=== PATIENT | female | born 1950 | race Caucasian/White ===

== ENCOUNTER → 2021-06-30 12:25 | Outpatient (CLI) | payer MEDICARE, SELFPAY ==
--- NOTE | ~2021-06-30 | DEXA_ITS ---
Bone Density Report Name: RIC NEWTON Age: 70 Sex: Female Ethnicity: White Date of : 1950 Indication: postmenopausal; screening for osteoporosis; height loss; Referring Provider: ALEJANDRO WALDRON Study: Bone densitometry was performed. Exam Date: June 30, 2021 Accession number: [id number] Bone Density: Region BMD T-score Z-score Classification AP Spine (L1-L4) 1.089 0.4 2.6 Normal Femoral Neck (Left) 0.906 0.5 2.4 Normal Total Hip (Left) 1.075 1.1 2.7 Normal Femoral Neck (Right) 0.919 0.6 2.5 Normal Total Hip (Right) 1.090 1.2 2.8 Normal Total Hip Mean 1.083 1.2 2.8 Normal World Health Organization criteria for BMD impression classify patients as: Normal (T-score at or above -1.0), Osteopenia (T-score between -1.0 and -2.5), or Osteoporosis (T-score at or below -2.5). 10-year Fracture Risk: FRAX not reported because: All T-scores for Spine Total, Hip Total, Femoral Neck at or above -1.0 Clinical Information Provided by Patient: Has used the following medications: Vitamin D Patient maximum height was 64 Menopause Age: 39 Onset of menses at age 11 Number of children 2 Impression: The patient has normal bone mass. Discussion: LOW RISK OF FRACTURE; BONE DENSITY IS WELL ABOVE THE MINIMUM DESIRABLE LEVEL AND ABOVE AVERAGE FOR AGE AND SEX AT ALL SKELETAL SITES TESTED. This person's bone density is above expected limits for age and sex. This is rarely clinically significant, but should be pursued if there are significant musculoskeletal complaints. The patient should follow a healthful lifestyle (good nutrition with adequate calcium and vitamin D, and appropriate weight-bearing exercise). Follow-Up: Consider repeating this study in 5 years or sooner if there is some new clinical indication. Reported by: MARIANNA on 06/30/2021 12:40:00 PM. Reviewed, dictated and finalized at location ABrittany BEARDEN
== END ==
PROVIDERS: PCP Family Medicine; Visit Provider Family Medicine
DX: Z78.0 Asymptomatic menopausal state (principal)
CPT/HCPCS: 77080

== ENCOUNTER 2022-07-22 08:46 | Outpatient (CLI) | payer MEDICARE, SELFPAY ==
--- NOTE | ~2022-07-22 | CT_ITS ---
EXAMINATION: CT shoulder LT wo con DATE: 07/22/2022 09:07 INDICATION: Left shoulder pain. TECHNIQUE: Computed tomography (CT) of the left shoulder was performed without intravenous contrast. Automated exposure control and iterative reconstruction technique were employed. The dose-length prod uct was 171.02 mGy-cm. COMPARISON: Left shoulder radiographs 07/08/2022 FINDINGS: Bone alignment is normal. No fracture. There is mild osteoarthritis of glenohumeral joint a nd acromioclavicular joint. The rotator cuff muscle bellies are normal. IMPRESSION: 1. Mild polyarticular osteoarthritis. Reviewed, dictated and finalized at location A. NEYMAN PIPEFITTER
== END 2022-07-22 08:47 | disposition home or self-care (01) ==
PROVIDERS: PCP Family Medicine; Visit Provider Orthopaedic Surgery
DX: M19.012 Primary osteoarthritis, left shoulder (principal)
CPT/HCPCS: 73200

== ENCOUNTER 2023-09-14 12:33 | Outpatient (CLI) | payer MEDICARE, SELFPAY ==
--- NOTE | ~2023-09-14 | XR_ITS ---
Left Shoulder Technique: AP and scapular Y views were obtained. Clinical History: Pain, rotator cuff tear Findings: No fracture or dislocation is seen. Osseous alignment is anatomic. The glenohumeral and acr omioclavicular joint spaces are preserved. Soft tissues are unremarkable. Impression: Unremarkable left shoulder radiographs. Reviewed, dictated and finalized at [facility]. Impression: Unremarkable left shoulder radiographs.
== END 2023-09-14 12:34 | disposition home or self-care (01) ==
PROVIDERS: PCP Family Medicine; Visit Provider Orthopaedic Surgery
DX: M75.102 Unspecified rotator cuff tear or rupture of left shoulder, not specified as traumatic (principal)
CPT/HCPCS: 73030

== ENCOUNTER 2024-01-22 21:41 | Inpatient (IN) | payer MEDICARE, SELFPAY ==
--- NOTE | ~2024-01-22 | XR_ITS ---
Portable chest x-ray Comparison: 04/15/2011 Clinical History: Weakness, cough Findings: There is patchy airspace disease at the right perihilar region to right lower lobe. Left l aron clear. Cardiomediastinal silhouette is stable. Bones and soft tissues are unremarkable. Impression: Patchy airspace disease right perihilar region right lower lobe, suspicious for pneumonia. Reviewed, dictated and finalized at location . Impression: Patchy airspace disease right perihilar region right lower lobe, suspicious for pneumonia.
--- NOTE | ~2024-01-22 | XR_ITS ---
Portable chest x-ray Comparison: 01/23/2024 Clinical History: Cough, pneumonia Findings: There is worsening patchy consolidation throughout the right lung. Left lung essentially c lear. Cardiomediastinal silhouette is stable, with loop recorder. Bones and soft tissues are unremar kable. Impression: Worsening patchy right lung consolidation, compatible with extensive right lung pneumonia. Reviewed, dictated and finalized at location M. Impression: Worsening patchy right lung consolidation, compatible with extensive right lung pneumonia.
[2024-01-22 21:44] VITALS: BP 161/59; PULSE 90; RESP 20; TEMP 37.9; O2SAT 95
[2024-01-23] VITALS (15 sets, daily range): BP systolic 95–164; BP diastolic 49–76; PULSE 68–102; RESP 15–18; TEMP 37–38.3; O2SAT 93–96
--- NOTE | 2024-01-23 01:17 | ECG_ITS ---
Test Date: 2024-01-23 01:38:22 Measurements Intervals [place] Rate: 86 P: 59 NV: 165 QRS: -4 QRSD: 101 T: 30 QT: 385 QTc: 462 Interpretive Statements SINUS RHYTHM POSSIBLE LEFT ATRIAL ENLARGEMENT INCOMPLETE RIGHT BUNDLE BRANCH BLOCK LEFT VENTRICULAR HYPERTROPHY WITH ST-T CHANGE MINIMAL Q WAVES- HIGH LATERAL LEADS BASELINE ARTIFACT- II, III, AVR, AVL, AVF BORDERLINE ECG No previous ECG available for comparison Electronically Signed On 01-23-2024 08:41:34 CDT by Jose Rowley D.O.
[2024-01-23 01:46] LABS: Alanine Aminotransferase 22 U/L (6-35); Albumin Level 4.4 g/dL (3.5-5.1); Alkaline Phosphatase 96 U/L (38-126); Anion Gap 13 mmol/L (4-12); Aspartate Amino Transferase 33 U/L (14-36); Bilirubin,Total 1.4 mg/dL (0.2-1.3); Blood Urea Nitrogen 12 mg/dL (7-17); Calcium 9.3 mg/dL (8.4-10.2); Carbon Dioxide 25 mmol/L (22-30); Chloride 96 mmol/L (98-107); Estimated CRCL calculation 54 ml/min; Estimated Glomerular Filt Rate > 60; Glucose 154 mg/dL (65-110); Sodium 134 mmol/L (137-145)
[2024-01-23 01:51] LABS: Basophils Percent Auto 0.3 % (0.2-1.2); Eosinophils Percent Auto 0.1 % (0-4.4); Hematocrit 33.8 % (37.0-47.0); Hemoglobin 11.5 g/dL (12.0-15.0); Immature Granulocyte Absolute 0.05 K/mm3 (0.00-0.031); Immature Granulocyte Percent A 0.4 % (0-0.5); Lymphocytes Absolute Auto 0.74 K/mm3 (0.9-3.2); Lymphocytes Percent Auto 6.2 % (18.3-44.2); Mean Corpuscular Hemoglobin 26.6 pg (26-34); Mean Corpuscular Volume 78.1 fl (80-100); Mean Platelet Volume 11.9 fl (7.4-10.4); Monocytes Absolute Auto 0.8 K/mm3 (0.1-0.6); Neutrophils Absolute Auto 10.3 K/mm3 (1.3-6.7); Platelet Count Result 143 k/mm3 (150-375); Red Blood Count 4.33 M/mm3 (4.2-5.4); Red Cell Distribution Width 13.6 % (11.5-14.5)
[2024-01-23 02:01] LABS: Add Urine Microscopic? YES; Appearance Urine Clear (Clear); Bacteria Urine None Seen /hpf; Bilirubin Urine Negative (Negative); Blood Urine Negative (Negative); Color Urine Yellow (Yellow); Glucose Urine UA Negative (Negative); Ketones Urine Trace mg/dL (Negative); Leukocyte Esterase Ur Negative LEU/UL (Negative); Need Manual Microscopic Reviewed; Nitrate Urine Negative (Negative); Non Pathogenic Casts 0-2; Protein Urine 1+ mg/dL (Negative); RBC Urine 0-2 /hpf (0-2); Specific Grav Ur 1.012 (1.001-1.035); Squamous Epithelial Cell Urine None Seen /hpf (Few); WBC Urine 0-5 /hpf (0-3)
[2024-01-23 02:23] LABS: Influenza A QL RT-PCR Negative (Negative); Influenza B QL RT-PCR Negative (Negative); RSV RNA, RT-PCR Negative (Negative); SARS-CoV-2 RNA PCR Negative (Negative)
--- NOTE | 2024-01-23 03:04 | ED.FEVER ---
HPI - Fever General Chief Complaint: Fever Stated Complaint: fever, decreased appetite, cough, chills Time Seen by Provider: 01/23/24 01:57 History of Present Illness HPI Narrative: 73-year-old female with a history of hypertension, hypothyroidism presenting with fevers. States that for the last 4-5 days she has had nasal congestion and cough. States that she has been feeling increasingly weak with no appetite. For the last couple of days she has been spiking fevers up to 105F. She was seen at urgent care who started her on Augmentin today but then she checked her temperature and it was 104.4F so she became concerned and came in for evaluation. She denies chest pain or shortness of breath. No nausea or vomiting. No leg swelling. No dysuria. No further complaints. Related Data Home Medications Medication Instructions Recorded Confirmed cuptczyr-ant- 250 mg-dha 90 1 cap PO DAILY 07/08/22 01/23/24 mg-epa 160 jx-xtip-epea-zeax capsule (Ocuvite Adult 50 Plus) Allergies Allergy/AdvReac Type Severity Reaction Status Date / Time Sulfa (Sulfonamide Allergy Mild Rash Verified 11/26/23 12:21 Antibiotics) cefuroxime Allergy Unknown Rash Verified 11/26/23 12:21 clindamycin Allergy Unknown Rash Verified 11/26/23 12:21 levofloxacin AdvReac Unknown Other Verified 11/26/23 12:21 Review of Systems Review of Systems: All systems reviewed & are unremarkable except as noted in HPI and below PMFSH Past Medical History Medical History (Updated 01/27/24 @ 20:37 by Janett Beck MD) Allergic rhinitis Anemia Essential hypertension H/O cardiac arrhythmia Hypothyroidism (acquired) Venous insufficiency of both lower extremities Vitamin D deficiency Surgical History Surgical History History of bilateral knee replacement History of laparoscopic cholecystectomy History of radiofrequency ablation procedure for cardiac arrhythmia Family History Family History Mother Patient's mother is in good health Father Patient's father is in good health Social History Social History Smoking status: Never smoker Second hand tobacco smoke exposure: No Alcohol intake: never Substance use: never Substance use type: does not use Do You Feel Safe in your Home?: Yes Lack of Transportation: No Lack of Food: Never True Current Housing: I Have Housing Concerned About Future Housing: No Difficulty Paying Gas/Electric Bills: No Difficulty Paying for Meds: No Currently Unemployed: No Education: Bachelor's Degree Difficulty w/ Childcare or Family Care: No Living arrangements: with family Occupation/Education: retired Gender identity (if verbalized by the patient): Female Sexual Orientation (if Verbalized by the Patient): Straight or Heterosexual Spiritual care concerns: No Agree to blood products: Yes Exam Narrative: GENERAL: Nontoxic, no acute distress, very pleasant cooperative HEAD: Normocephalic, atraumatic. EYES: PERRLA and EOMI. ENT: + nasal congestion NECK: Supple. CHEST: Course breath sounds in bilateral bases. No respiratory distress. HEART: Regular rate and rhythm ABDOMEN: Soft, nontender, nondistended EXTREMITIES: Normal range of motion. SKIN: Warm, dry, no rash. NEURO: No focal deficits. Alert and oriented x3. PSYCH: Normal mood and affect. Course Vital Signs Vital signs: Vital Signs Temperature 100.3 F H 01/22/24 21:44 Pulse Rate 90 01/22/24 21:44 Respiratory Rate 20 01/22/24 21:44 Blood Pressure 161/59 H 01/22/24 21:44 Pulse Oximetry 95 01/22/24 21:44 Oxygen Delivery Room Air 01/22/24 21:44 Temperature 98.8 F 01/26/24 05:46 Pulse Rate 76 01/26/24 12:00 Respiratory Rate 16 01/26/24 05:46 Blood Pressure 165/68 H
--- NOTE | 2024-01-23 03:17 | PM.IMHP ---
H&P: HPI History of Present Illness Date/Time: 01/23/24 03:17 Chief Complaint: fever Narrative: This is a 73-year-old female with past medical history significant for hypertension, GERD. patient comes to the emergency room with fever of 105 cough productive of coleman sputum generalized malaise body aches and pains chills generalized weakness these for 3-4 days. In emergency room patient was found to have a right lower lobe and middle lobe pneumonia. Patient has been admitted for further evaluation management and treatment. Portable chest x-ray Comparison: 04/15/2011 Clinical History: Weakness, cough Findings: There is patchy airspace disease at the right perihilar region to right lower lobe. Left lung clear. Cardiomediastinal silhouette is stable. Bones and soft tissues are unremarkable. Impression: Patchy airspace disease right perihilar region right lower lobe, suspicious for pneumonia. Review of Systems Review of Systems: fever of 105, BODY ACHES AND PAINS, NIGHT SWEATS, CHILLS, COUGH PRODUCTIVE OF SPUTUM, POOR PER ORALLY INTAKE, GENERALIZED MALAISE. [facility] Past Medical History Medical History Allergic rhinitis Anemia Essential hypertension H/O cardiac arrhythmia Hypothyroidism (acquired) Venous insufficiency of both lower extremities Vitamin D deficiency Surgical History Surgical History History of bilateral knee replacement History of laparoscopic cholecystectomy History of radiofrequency ablation procedure for cardiac arrhythmia Family History Family History Mother Patient's mother is in good health Father Patient's father is in good health Social History Social History Smoking status: Never smoker Second hand tobacco smoke exposure: No Alcohol intake: never Substance use: never Substance use type: does not use Do You Feel Safe in your Home?: Yes Lack of Transportation: No Lack of Food: Never True Current Housing: I Have Housing Concerned About Future Housing: No Difficulty Paying Gas/Electric Bills: No Difficulty Paying for Meds: No Currently Unemployed: No Education: Bachelor's Degree Difficulty w/ Childcare or Family Care: No Living arrangements: with family Occupation/Education: retired Gender identity (if verbalized by the patient): Female Sexual Orientation (if Verbalized by the Patient): Straight or Heterosexual Spiritual care concerns: No Agree to blood products: Yes Meds Home Medications and Allergies Home Medications Medication Instructions Recorded Confirmed Type zecxjnty-[id number]-[id number] 250 mg-dha 90 1 cap PO DAILY 07/08/22 01/23/24 History mg-epa 160 sc-enca-ceec-zeax capsule (Ocuvite Adult 50 Plus) amlodipine 10 mg tablet 10 mg PO DAILY #90 tabs 09/01/23 01/23/24 Rx furosemide 20 mg tablet 20 mg PO QAM #90 tabs 09/01/23 01/23/24 Rx levothyroxine 75 mcg tablet 75 mcg PO DAILY #90 tabs 09/01/23 01/23/24 Rx spironolactone 25 mg tablet 25 mg PO DAILY #90 tabs 09/01/23 01/23/24 Rx omeprazole 40 mg capsule,delayed 40 mg PO DAILY #90 caps 11/11/23 01/23/24 Rx release Allergies Allergy/AdvReac Type Severity Reaction Status Date / Time Sulfa (Sulfonamide Allergy Mild Rash Verified 11/26/23 12:21 Antibiotics) cefuroxime Allergy Unknown Rash Verified 11/26/23 12:21 clindamycin Allergy Unknown Rash Verified 11/26/23 12:21 levofloxacin AdvReac Unknown Other Verified 11/26/23 12:21 Vital Signs Vital Signs - 24 hr 01/22/24 21:44 01/23/24 02:17 Temperature 100.3 F H 98.9 F Pulse Rate 90 84 Respiratory Rate 20 15 Blood Pressure 161/59 H 162/54 H Pulse Oximetry 95 94 Oxygen Delivery Room Air Exam Narrative: Patient is laying in a stretcher Co
[2024-01-23] MEDS: POTASSIUM CHLORIDE 20 MEQ ER TABLET 40 MEQ PO ×2 (03:28→09:51)
[2024-01-23] MEDS: AZTREONAM 2 GM in SODIUM CHLORIDE 0.9% IV 100 ML 200 ML IVPB ×3 (03:31→18:43)
[2024-01-23] MEDS: AZITHROMYCIN 500 MG/NS 250 ML 500 MG/250 ML BAG 250 MG IVPB (03:45)
--- NOTE | 2024-01-23 04:28 | ADMGEN ---
This patient, Alexa Burden, was admitted to Medical Room 344-01. Patient/family oriented to hospital policies and general routines including ID bracelet, bed and alarms, visiting hours, pain management, procedures, bathroom and other care routines, personal items, smoking policy, room service/diet, and visiting hours. Information on how to activate the Rapid Response Team has been discussed. Patient/Family are encouraged to report perceived risks to care and to ask questions if they do not understand what they are told or what they should do.
[2024-01-23] MEDS: LEVOTHYROXINE SODIUM 75 MCG TABLET PO (06:34)
--- NOTE | 2024-01-23 08:19 | PM.IMPN ---
Progress Note: A&P Assessment and Plan (1) Sepsis: Code(s): A41.9 - Sepsis, unspecified organism Status: Acute Assessment and Plan: Chest X-ray concerning for RLL pneumonia WBC 12.0, febrile 100.4, tachycardic 102, hypoTN Blood cultures, lactic normal , procal 1.1 NS bolus 1 L now, then maintenance fluids at 100 per hour Started on Aztreonam and Azithromycin (2) Pneumonia: Code(s): J18.9 - Pneumonia, unspecified organism Status: Acute Assessment and Plan: Patient presents with reports of 104 fever at home with productive cough of coleman sputum, generalized malaise, body aches, and weakness for 3-4 days. She was seen at an urgent care yesterday and was started on Augmentin. Chest X-ray concerning for RLL pneumonia WBC 12.0, febrile 100.4, tachycardic 102, hypoTN No blood cultures were drawn prior to abx. Adding cultures and lactic now. Sputum culture if able. Procal pending. Legionella, mycoplasma, and pneumococcal antigen pending Given allergies to cephalosporins she was started on Aztreonam and Azithromycin IV fluid bolus of NS now and the maintenance of 100 ml per hour Tylenol as needed for fever Duo nebs q 6 hours, Mucinex BID Incentive spirometer, PEP (3) Diarrhea: Code(s): R19.7 - Diarrhea, unspecified Status: Acute Assessment and Plan: Suspect virus gastroenteritis vs less likely bacterial infection vs less likely colitis with lack of abdominal pain foul smelling, watery diarrhea with nausea C-diff ordered, stool culture ordered can consider Imodium if infection ruled out (4) Hypertension: Code(s): I10 - Essential (primary) hypertension Status: Acute Assessment and Plan: Patient is normally on amlodipine 10 mg daily, Lasix 20 mg daily, and spironolactone 25 mg daily. Given sepsis, blood pressure medications are on hold Plan DVT prophylaxis: Lovenox Glycemic control: na Code Status: Full Code Disposition: 73-year-old lady who presents with productive cough, fever, and chills and found have right lower lobe pneumonia. She has triggering sepsis for leukocytosis, fever, tachycardia, hypertension. She was started on IV antibiotics. Blood cultures, lactic, and procalcitonin are pending. IV fluids were started. PT OT will be ordered when appropriate. Medication reconciliation obtained via the following: Nurse completed on admission The file time of this note does not necessarily represent the time the patient was seen. Subjective Date/time seen: 01/23/24 08:19 Interval history: 73-year-old female with a history of hypertension, hypothyroidism presenting with fevers. She states on Wednesday she was having a decreased appetite and started to feel generally unwell with a sore throat. On Wednesday she started to feel worse with generalized weakness, fatigue, and productive cough. On Wednesday she went to an urgent care where she was told she had a sinus infection. She was started on Augmentin and took one dose. When she got home later that day she had a fever of 105. She decided to come to the ED for further evaluation. She says that she has been hospitalized in the past for sepsis but unsure of the source. 01/22: She is sitting in bed on room air and appears unwell. She has a congested cough and has been producing green sputum. Her sore throat is improved. She reports night sweats this week and she thinks she has lost about 8 pounds in the last week due to poor intake. Today she is also having loose, watery foul smelling stools. She denies abdominal pain, cramping, or bloody stool. Review of Systems Review of Systems: All systems reviewed & are unremarkable except as noted in HPI and below Exam Narrative: General: well appearing, appears stated age. HEENT: normocephalic, atraumatic. Mucous membranes moist. EOMI,
[2024-01-23 09:48] LABS: Magnesium 1.8 mg/dL (1.6-2.3)
[2024-01-23] MEDS: guaiFENesin 12 HR 600 MG TABCR 1200 MG PO ×2 (09:50→21:02)
[2024-01-23] MEDS: PANTOPRAZOLE 40 MG TABLET PO (09:50)
[2024-01-23] MEDS: OPTI-GEN TAB 1 TABLET PO (09:51)
[2024-01-23] MEDS: SODIUM CHLORIDE 0.9% IV 1,000 ML 999 ML IV CONT (09:52)
[2024-01-23] MEDS: SODIUM CHLORIDE 0.9% IV 1,000 ML 100 ML IV CONT ×2 (09:53→21:03)
[2024-01-23] MEDS: ENOXAPARIN 40 MG/0.4 ML SYRINGE SUB-Q (09:54)
[2024-01-23 09:58] LABS: Procalcitonin 1.1 ng/mL
[2024-01-23] MEDS: IPRATROPIUM 0.5 MG/ALBUTEROL SULFATE 2.5 MG AMPUL.NEB 3 ML INHALATION ×2 (13:07→20:04)
[2024-01-23] MEDS: ACETAMINOPHEN 500 MG TABLET 1000 MG PO (17:19)
[2024-01-24] VITALS (20 sets, daily range): BP systolic 130–134; BP diastolic 45–56; PULSE 70–100; RESP 18–22; TEMP 36.7–38.4; O2SAT 93–95
[2024-01-24] MEDS: IPRATROPIUM 0.5 MG/ALBUTEROL SULFATE 2.5 MG AMPUL.NEB 3 ML INHALATION ×3 (01:47→20:31)
[2024-01-24] MEDS: AZTREONAM 2 GM in SODIUM CHLORIDE 0.9% IV 100 ML 200 ML IVPB ×3 (04:14→18:45)
[2024-01-24] MEDS: AZITHROMYCIN 500 MG/NS 250 ML 500 MG/250 ML BAG 250 MG IVPB (04:18)
[2024-01-24] MEDS: ACETAMINOPHEN 500 MG TABLET 1000 MG PO ×2 (04:41→16:18)
[2024-01-24] MEDS: LEVOTHYROXINE SODIUM 75 MCG TABLET PO (05:06)
[2024-01-24] MEDS: SODIUM CHLORIDE 0.9% IV 1,000 ML 100 ML IV CONT (05:41)
[2024-01-24 07:06] LABS: Hematocrit 26.2 % (37.0-47.0); Hemoglobin 8.7 g/dL (12.0-15.0); Mean Corpuscular HGB Conc 33.2 g/dl (32-36); Mean Corpuscular Hemoglobin 26.5 pg (26-34); Mean Corpuscular Volume 79.9 fl (80-100); Platelet Count Result 106 k/mm3 (150-375); Red Blood Count 3.28 M/mm3 (4.2-5.4); Red Cell Distribution Width 13.9 % (11.5-14.5); White Blood Count 5.8 K/mm3 (4.5-10.0)
[2024-01-24 07:07] LABS: Basophils Percent Auto 0.2 % (0.2-1.2); Eosinophils Percent Auto 0.5 % (0-4.4); Immature Granulocyte Absolute 0.05 K/mm3 (0.00-0.031); Immature Granulocyte Percent A 0.9 % (0-0.5); Immature Platelet Fraction Pct 7.3 % (0.9-11.2); Lymphocytes Absolute Auto 0.46 K/mm3 (0.9-3.2); Lymphocytes Percent Auto 7.9 % (18.3-44.2); Mean Platelet Volume 12.3 fl (7.4-10.4); Monocytes Absolute Auto 0.4 K/mm3 (0.1-0.6); Monocytes Percent Auto 7.5 % (2.6-8.5); Neutrophils Absolute Auto 4.9 K/mm3 (1.3-6.7)
[2024-01-24 07:14] LABS: Alanine Aminotransferase 18 U/L (6-35); Alkaline Phosphatase 73 U/L (38-126); Anion Gap 8 mmol/L (4-12); Aspartate Amino Transferase 27 U/L (14-36); Bilirubin,Total 0.4 mg/dL (0.2-1.3); Blood Urea Nitrogen 8 mg/dL (7-17); Calcium 8.3 mg/dL (8.4-10.2); Carbon Dioxide 21 mmol/L (22-30); Chloride 107 mmol/L (98-107); Estimated CRCL calculation 61 ml/min; Estimated Glomerular Filt Rate > 60; Glucose 126 mg/dL (65-110); Magnesium 1.9 mg/dL (1.6-2.3); Potassium 3.1 mmol/L (3.4-5.0); Sodium 136 mmol/L (137-145)
--- NOTE | 2024-01-24 07:23 | PM.IMPN ---
Progress Note: A&P Assessment and Plan (1) Sepsis: Code(s): A41.9 - Sepsis, unspecified organism Status: Acute Assessment and Plan: Chest X-ray concerning for RLL pneumonia WBC 12.0, febrile 100.4, tachycardic 102, hypoTN Blood cultures, lactic normal , procal 1.1 NS bolus 1 L now, then maintenance fluids at 100 per hour Started on Aztreonam and Azithromycin (2) Pneumonia: Code(s): J18.9 - Pneumonia, unspecified organism Status: Acute Assessment and Plan: Patient presents with reports of 104 fever at home with productive cough of coleman sputum, generalized malaise, body aches, and weakness for 3-4 days. She was seen at an urgent care yesterday and was started on Augmentin. Chest X-ray concerning for RLL pneumonia WBC 12.0, febrile 100.4, tachycardic 102, hypoTN No blood cultures were drawn prior to abx. Adding cultures and lactic now. Sputum culture if able. Procal 1.1 Legionella, mycoplasma, and pneumococcal antigen pending Given allergies to cephalosporins she was started on Aztreonam and Azithromycin IV fluid bolus of NS now and the maintenance of 100 ml per hour Tylenol as needed for fever Duo nebs q 6 hours, Mucinex BID Incentive spirometer, PEP (3) Anemia: Code(s): D64.9 - Anemia, unspecified Status: Acute Assessment and Plan: Hemoglobin 11.5 g/dl on admission. Today Hgb dropped to 8.7 g/dl. Patient has been having diarrhea. She states her stool was yellow but the last bowel movement she had was dark anemia panel pending occult stool ordered (4) Metabolic acidosis: Code(s): E87.20 - Acidosis, unspecified Status: Acute Assessment and Plan: Likely from diarrhea C-diff negative Stool culture pending occult stool ordered (5) Hypertension: Code(s): I10 - Essential (primary) hypertension Status: Acute Assessment and Plan: Patient is normally on amlodipine 10 mg daily, Lasix 20 mg daily, and spironolactone 25 mg daily. Given sepsis, blood pressure medications are on hold Blood pressures are reviewed Plan DVT prophylaxis: Lovenox Glycemic control: na Code Status: Full Code Disposition: 73-year-old lady who presents with productive cough, fever, and chills and found have right lower lobe pneumonia. She has triggering sepsis for leukocytosis, fever, tachycardia, hypertension. She was started on IV antibiotics. Blood cultures, lactic, and procalcitonin are pending. IV fluids were started. PT OT will be ordered when appropriate. Medication reconciliation obtained via the following: Nurse completed on admission The file time of this note does not necessarily represent the time the patient was seen. Subjective Date/time seen: 01/24/24 07:23 Interval history: 73-year-old female with a history of hypertension, hypothyroidism presenting with fevers. She states on Wednesday she was having a decreased appetite and started to feel generally unwell with a sore throat. On Wednesday she started to feel worse with generalized weakness, fatigue, and productive cough. On Wednesday she went to an urgent care where she was told she had a sinus infection. She was started on Augmentin and took one dose. When she got home later that day she had a fever of 105. She decided to come to the ED for further evaluation. She says that she has been hospitalized in the past for sepsis but unsure of the source. 01/22: She is sitting in bed on room air and appears unwell. She has a congested cough and has been producing green sputum. Her sore throat is improved. She reports night sweats this week and she thinks she has lost about 8 pounds in the last week due to poor intake. Today she is also having loose, watery foul smelling stools. She denies abdominal pain, cramping, or bloody stool. 01/23: No acute events overnight. S
[2024-01-24] MEDS: ENOXAPARIN 40 MG/0.4 ML SYRINGE SUB-Q (08:09)
[2024-01-24] MEDS: POTASSIUM CHLORIDE 20 MEQ ER TABLET 40 MEQ PO (08:09)
[2024-01-24] MEDS: OPTI-GEN TAB 1 TABLET PO (08:09)
[2024-01-24] MEDS: guaiFENesin 12 HR 600 MG TABCR 1200 MG PO ×2 (08:09→21:01)
[2024-01-24] MEDS: KCL 20 MEQ/SW 100 ML 100 ML 50 MEQ IVPB (08:09)
[2024-01-24] MEDS: PANTOPRAZOLE 40 MG TABLET PO (08:09)
[2024-01-24 08:10] LABS: Toxigenic C. Diff NEGATIVE (NEGATIVE)
[2024-01-24 12:27] LABS: Iron 18 ug/dL (37-170)
[2024-01-24] MEDS: SACCHAROMYCES BOULARDII 250 MG CAPSULE PO ×2 (12:29→16:18)
[2024-01-24 12:38] LABS: Immature Reticulocyte Fraction 12.1 % (3.0-15.9); Reticulocyte Hemoglobin Conten 21.3 pg (28.2-36.6); Reticulocyte Percent 1.14 % (0.7-4.3); Reticulocytes Absolute 0.04 10^6/uL (0.02-0.10)
[2024-01-24 12:41] LABS: Percent Iron Saturation 9 % (20-50)
[2024-01-24 12:45] LABS: Bilirubin,Total 0.4 mg/dL (0.2-1.3); Lactate Dehydrogenase 184 U/L (120-246)
[2024-01-24 12:48] LABS: Transferrin 138 mg/dL (206-381)
[2024-01-24 13:33] LABS: Folic Acid 11.5 ng/mL (2.76->20)
[2024-01-24] MEDS: FERROUS SULFATE 325 MG TABLET DR PO (16:18)
[2024-01-25] VITALS (15 sets, daily range): BP systolic 136–172; BP diastolic 51–68; PULSE 71–103; RESP 16–20; TEMP 36.8–37; O2SAT 92–95
[2024-01-25] MEDS: ACETAMINOPHEN 500 MG TABLET 1000 MG PO (01:18)
[2024-01-25] MEDS: IPRATROPIUM 0.5 MG/ALBUTEROL SULFATE 2.5 MG AMPUL.NEB 3 ML INHALATION ×3 (02:00→13:58)
[2024-01-25 02:21] LABS: IFOB Positive Control Positive
[2024-01-25 02:23] LABS: Immunochemical Fecal Occult Bl Negative (N)
[2024-01-25] MEDS: AZITHROMYCIN 500 MG/NS 250 ML 500 MG/250 ML BAG 250 MG IVPB (04:09)
[2024-01-25] MEDS: AZTREONAM 2 GM in SODIUM CHLORIDE 0.9% IV 100 ML 200 ML IVPB ×2 (04:10→12:42)
[2024-01-25] MEDS: LEVOTHYROXINE SODIUM 75 MCG TABLET PO (04:10)
[2024-01-25 05:52] LABS: Basophils Percent Auto 0.3 % (0.2-1.2); Eosinophils Absolute Auto 0.1 K/mm3 (0-0.3); Eosinophils Percent Auto 1.9 % (0-4.4); Hematocrit 26.5 % (37.0-47.0); Hemoglobin 8.7 g/dL (12.0-15.0); Immature Granulocyte Absolute 0.08 K/mm3 (0.00-0.031); Immature Granulocyte Percent A 1.3 % (0-0.5); Lymphocytes Absolute Auto 0.69 K/mm3 (0.9-3.2); Lymphocytes Percent Auto 11.2 % (18.3-44.2); Mean Corpuscular HGB Conc 32.8 g/dl (32-36); Mean Corpuscular Hemoglobin 26.3 pg (26-34); Mean Corpuscular Volume 80.1 fl (80-100); Mean Platelet Volume 11.9 fl (7.4-10.4); Monocytes Absolute Auto 0.5 K/mm3 (0.1-0.6); Monocytes Percent Auto 7.9 % (2.6-8.5); Neutrophils Absolute Auto 4.8 K/mm3 (1.3-6.7); Neutrophils Percent Auto 77.4 % (45.5-73.1); Platelet Count Result 145 k/mm3 (150-375); Red Blood Count 3.31 M/mm3 (4.2-5.4); Red Cell Distribution Width 14.1 % (11.5-14.5); White Blood Count 6.2 K/mm3 (4.5-10.0)
[2024-01-25 06:02] LABS: Alanine Aminotransferase 19 U/L (6-35); Albumin Level 3.1 g/dL (3.5-5.1); Alkaline Phosphatase 72 U/L (38-126); Anion Gap 9 mmol/L (4-12); Aspartate Amino Transferase 23 U/L (14-36); Bilirubin,Total 0.4 mg/dL (0.2-1.3); Blood Urea Nitrogen 7 mg/dL (7-17); Calcium 8.5 mg/dL (8.4-10.2); Carbon Dioxide 22 mmol/L (22-30); Chloride 109 mmol/L (98-107); Estimated CRCL calculation 70 ml/min; Estimated Glomerular Filt Rate > 60; Glucose 119 mg/dL (65-110); Potassium 3.5 mmol/L (3.4-5.0); Sodium 140 mmol/L (137-145)
[2024-01-25] MEDS: guaiFENesin 12 HR 600 MG TABCR 1200 MG PO ×2 (08:57→20:27)
[2024-01-25] MEDS: OPTI-GEN TAB 1 TABLET PO (08:57)
[2024-01-25] MEDS: ENOXAPARIN 40 MG/0.4 ML SYRINGE SUB-Q (08:58)
[2024-01-25] MEDS: PANTOPRAZOLE 40 MG TABLET PO (08:58)
[2024-01-25] MEDS: FERROUS SULFATE 325 MG TABLET DR PO ×2 (08:58→17:24)
[2024-01-25] MEDS: SACCHAROMYCES BOULARDII 250 MG CAPSULE PO ×3 (08:58→17:24)
--- NOTE | 2024-01-25 11:07 | P.PNIM_ITS ---
Progress Note: A&P Assessment and Plan (1) Sepsis: Code(s): A41.9 - Sepsis, unspecified organism Status: Acute Assessment and Plan: Chest X-ray concerning for RLL pneumonia * WBC 12.0, febrile 100.4, tachycardic 102, hypoTN * Blood cultures, lactic normal , procal 1.1 * NS bolus 1 L now, then maintenance fluids at 100 per hour * Started on Aztreonam and Azithromycin (2) Pneumonia: Code(s): J18.9 - Pneumonia, unspecified organism Status: Acute Assessment and Plan: Patient presents with reports of 104 fever at home with productive cough of coleman sputum, generalized malaise, body aches, and weakness for 3-4 days. She was seen at an urgent care yesterday and was started on Augmentin. * Chest X-ray concerning for RLL pneumonia * WBC 12.0, febrile 100.4, tachycardic 102, hypoTN * No blood cultures were drawn prior to abx. Adding cultures and lactic now. Sputum culture if able. Procal 1.1 * Legionella, mycoplasma, and pneumococcal antigen pending * Given allergies to cephalosporins she was started on Aztreonam and Azithromycin * IV fluid bolus of NS now and the maintenance of 100 ml per hour * Tylenol as needed for fever * Duo nebs q 6 hours, Mucinex BID * Incentive spirometer, PEP (3) Anemia: Code(s): D64.9 - Anemia, unspecified Status: Acute Assessment and Plan: Hemoglobin 11.5 g/dl on admission. Today Hgb dropped to 8.7 g/dl. * Patient has been having diarrhea. She states her stool was yellow but the last bowel movement she had was dark * anemia panel showed iron deficiency. Started on PO ferrous sulfate. * occult stool negative (4) Metabolic acidosis: Code(s): E87.20 - Acidosis, unspecified Status: Acute Assessment and Plan: Likely from diarrhea * C-diff negative * Stool culture pending * occult stool ordered and negative (5) Hypertension: Code(s): I10 - Essential (primary) hypertension Status: Acute Assessment and Plan: Patient is normally on amlodipine 10 mg daily, Lasix 20 mg daily, and spironolactone 25 mg daily. * Given sepsis, blood pressure medications are on hold * Blood pressures are reviewed Plan DVT prophylaxis: Lovenox Glycemic control: na Code Status: Full Code Disposition: 73-year-old lady who presents with productive cough, fever, and chills and found have right lower lobe pneumonia. She has triggering sepsis for leukocytosis, fever, tachycardia, hypertension. She was started on IV antibiotics. Blood cultures with no growth to date, sputum culture negative. Procalcitonin was 1.1. She was also found to have iron deficient anemia and was started on ferrous sulfate. Diarrhea has slowed but not completely resolved. She has been up independently in the room. Repeat x-ray in the am, follow procal repeat. Likely discharge home with oral antibiotics on 01/25. Medication reconciliation obtained via the following: Nurse completed on admission The file time of this note does not necessarily represent the time the patient was seen. Subjective Date/time seen: 01/25/24 11:07 Interval history: 73-year-old female with a history of hypertension, hypothyroidism presenting with fevers. She states on Wednesday she was having a decreased appetite and started to feel generally unwell with a sore throat. On Wednesday she started to feel worse with generalized weakness, fatigue, and productive cough. On Wednesday she went to an urgent care where she was t
--- NOTE | 2024-01-25 11:07 | PM.IMPN ---
Progress Note: A&P Assessment and Plan (1) Sepsis: Code(s): A41.9 - Sepsis, unspecified organism Status: Acute Assessment and Plan: Chest X-ray concerning for RLL pneumonia WBC 12.0, febrile 100.4, tachycardic 102, hypoTN Blood cultures, lactic normal , procal 1.1 NS bolus 1 L now, then maintenance fluids at 100 per hour Started on Aztreonam and Azithromycin (2) Pneumonia: Code(s): J18.9 - Pneumonia, unspecified organism Status: Acute Assessment and Plan: Patient presents with reports of 104 fever at home with productive cough of coleman sputum, generalized malaise, body aches, and weakness for 3-4 days. She was seen at an urgent care yesterday and was started on Augmentin. Chest X-ray concerning for RLL pneumonia WBC 12.0, febrile 100.4, tachycardic 102, hypoTN No blood cultures were drawn prior to abx. Adding cultures and lactic now. Sputum culture if able. Procal 1.1 Legionella, mycoplasma, and pneumococcal antigen pending Given allergies to cephalosporins she was started on Aztreonam and Azithromycin IV fluid bolus of NS now and the maintenance of 100 ml per hour Tylenol as needed for fever Duo nebs q 6 hours, Mucinex BID Incentive spirometer, PEP (3) Anemia: Code(s): D64.9 - Anemia, unspecified Status: Acute Assessment and Plan: Hemoglobin 11.5 g/dl on admission. Today Hgb dropped to 8.7 g/dl. Patient has been having diarrhea. She states her stool was yellow but the last bowel movement she had was dark anemia panel showed iron deficiency. Started on PO ferrous sulfate. occult stool negative (4) Metabolic acidosis: Code(s): E87.20 - Acidosis, unspecified Status: Acute Assessment and Plan: Likely from diarrhea C-diff negative Stool culture pending occult stool ordered and negative (5) Hypertension: Code(s): I10 - Essential (primary) hypertension Status: Acute Assessment and Plan: Patient is normally on amlodipine 10 mg daily, Lasix 20 mg daily, and spironolactone 25 mg daily. Given sepsis, blood pressure medications are on hold Blood pressures are reviewed Plan DVT prophylaxis: Lovenox Glycemic control: na Code Status: Full Code Disposition: 73-year-old lady who presents with productive cough, fever, and chills and found have right lower lobe pneumonia. She has triggering sepsis for leukocytosis, fever, tachycardia, hypertension. She was started on IV antibiotics. Blood cultures with no growth to date, sputum culture negative. Procalcitonin was 1.1. She was also found to have iron deficient anemia and was started on ferrous sulfate. Diarrhea has slowed but not completely resolved. She has been up independently in the room. Repeat x-ray in the am, follow procal repeat. Likely discharge home with oral antibiotics on 01/25. Medication reconciliation obtained via the following: Nurse completed on admission The file time of this note does not necessarily represent the time the patient was seen. Subjective Date/time seen: 01/25/24 11:07 Interval history: 73-year-old female with a history of hypertension, hypothyroidism presenting with fevers. She states on Wednesday she was having a decreased appetite and started to feel generally unwell with a sore throat. On Wednesday she started to feel worse with generalized weakness, fatigue, and productive cough. On Wednesday she went to an urgent care where she was told she had a sinus infection. She was started on Augmentin and took one dose. When she got home later that day she had a fever of 105. She decided to come to the ED for further evaluation. She says that she has been hospitalized in the past for sepsis but unsure of the source. 01/22: She is sitting in bed on room air and appears unwell. She has a congested cough and has been producing green
[2024-01-25 12:54] LABS: Haptoglobin 341 mg/dL (43-212)
[2024-01-25] MEDS: LINEZOLID 600 MG TABLET PO ×2 (15:51→20:29)
[2024-01-25] MEDS: DOXYCYCLINE HYCLATE 100 MG TABLET PO (20:29)
[2024-01-26] VITALS: PULSE 78
--- NOTE | 2024-01-26 04:39 | PCRCNOTE ---
Patient refused both 1999 and 199 updraft treatments stating the treatments make her feel worse. The duoneb makes her feel super jittery and anxious. Consider swapping meds. However, patient reports she is not having difficulty breathing at all since being admitted.
[2024-01-26] MEDS: LEVOTHYROXINE SODIUM 75 MCG TABLET PO (05:29)
[2024-01-26 05:33] LABS: Basophils Percent Auto 0.4 % (0.2-1.2); Eosinophils Absolute Auto 0.4 K/mm3 (0-0.3); Eosinophils Percent Auto 5.6 % (0-4.4); Hematocrit 29.2 % (37.0-47.0); Hemoglobin 9.7 g/dL (12.0-15.0); Immature Granulocyte Absolute 0.44 K/mm3 (0.00-0.031); Immature Granulocyte Percent A 5.7 % (0-0.5); Lymphocytes Absolute Auto 0.71 K/mm3 (0.9-3.2); Lymphocytes Percent Auto 9.3 % (18.3-44.2); Mean Corpuscular HGB Conc 33.2 g/dl (32-36); Mean Corpuscular Hemoglobin 26.3 pg (26-34); Mean Corpuscular Volume 79.1 fl (80-100); Monocytes Absolute Auto 0.5 K/mm3 (0.1-0.6); Monocytes Percent Auto 6.8 % (2.6-8.5); Neutrophils Absolute Auto 5.5 K/mm3 (1.3-6.7); Neutrophils Percent Auto 72.2 % (45.5-73.1); Platelet Count Result 188 k/mm3 (150-375); Red Blood Count 3.69 M/mm3 (4.2-5.4); Red Cell Distribution Width 14.1 % (11.5-14.5); White Blood Count 7.7 K/mm3 (4.5-10.0)
[2024-01-26 05:45] LABS: Alanine Aminotransferase 22 U/L (6-35); Albumin Level 3.3 g/dL (3.5-5.1); Alkaline Phosphatase 87 U/L (38-126); Anion Gap 10 mmol/L (4-12); Aspartate Amino Transferase 26 U/L (14-36); Bilirubin,Total 0.5 mg/dL (0.2-1.3); Blood Urea Nitrogen 5 mg/dL (7-17); Calcium 8.6 mg/dL (8.4-10.2); Carbon Dioxide 23 mmol/L (22-30); Chloride 105 mmol/L (98-107); Estimated CRCL calculation 70 ml/min; Estimated Glomerular Filt Rate > 60; Glucose 113 mg/dL (65-110); Potassium 3.4 mmol/L (3.4-5.0); Sodium 138 mmol/L (137-145)
[2024-01-26 05:46] VITALS: PULSE 81; RESP 16; TEMP 37.1; O2SAT 96
[2024-01-26 06:05] LABS: Procalcitonin 0.3 ng/mL
[2024-01-26 06:08] LABS: Platelet Estimate Adequate (Adequate); Schistocytes None Seen
[2024-01-26 06:44] LABS: Protein, Total 4.7 g/dL (6.1-8.1)
[2024-01-26 08:00] VITALS: PULSE 79
[2024-01-26] MEDS: ONDANSETRON INJ 4 MG/2 ML VIAL IV PUSH (09:41)
[2024-01-26] MEDS: FERROUS SULFATE 325 MG TABLET DR PO (09:41)
[2024-01-26] MEDS: guaiFENesin 12 HR 600 MG TABCR 1200 MG PO (09:41)
[2024-01-26] MEDS: SACCHAROMYCES BOULARDII 250 MG CAPSULE PO ×2 (09:43→13:18)
[2024-01-26] MEDS: OPTI-GEN TAB 1 TABLET PO (09:43)
[2024-01-26] MEDS: PANTOPRAZOLE 40 MG TABLET PO (09:43)
[2024-01-26] MEDS: LINEZOLID 600 MG TABLET PO (09:43)
[2024-01-26] MEDS: ENOXAPARIN 40 MG/0.4 ML SYRINGE SUB-Q (09:44)
[2024-01-26] MEDS: DOXYCYCLINE HYCLATE 100 MG TABLET PO (09:44)
[2024-01-26 12:00] VITALS: PULSE 76
--- NOTE | 2024-01-26 14:12 | P.DS_ITS ---
DS: Admitting Diagnosis Discharge Date 01/25 Admitting Diagnosis weakness, cough DS: Discharge Diagnosis Discharge Diagnosis (1) Sepsis: Code(s): A41.9 - Sepsis, unspecified organism Status: Acute Assessment and Plan: Chest X-ray concerning for RLL pneumonia * WBC 12.0, febrile 100.4, tachycardic 102, hypoTN * Blood cultures, lactic normal , procal 1.1 * NS bolus 1 L now, then maintenance fluids at 100 per hour * Started on Aztreonam and Azithromycin (2) Pneumonia: Code(s): J18.9 - Pneumonia, unspecified organism Status: Acute Assessment and Plan: Patient presents with reports of 104 fever at home with productive cough of coleman sputum, generalized malaise, body aches, and weakness for 3-4 days. She was seen at an urgent care yesterday and was started on Augmentin. * Chest X-ray concerning for RLL pneumonia * WBC 12.0, febrile 100.4, tachycardic 102, hypoTN * No blood cultures were drawn prior to abx. Adding cultures and lactic now. Sputum culture if able. Procal 1.1 * Legionella, mycoplasma, and pneumococcal antigen pending * Given allergies to cephalosporins she was started on Aztreonam and Azithromycin * IV fluid bolus of NS now and the maintenance of 100 ml per hour * Tylenol as needed for fever * Duo nebs q 6 hours, Mucinex BID * Incentive spirometer, PEP (3) Anemia: Code(s): D64.9 - Anemia, unspecified Status: Acute Assessment and Plan: Hemoglobin 11.5 g/dl on admission. Today Hgb dropped to 8.7 g/dl. * Patient has been having diarrhea. She states her stool was yellow but the last bowel movement she had was dark * anemia panel showed iron deficiency. Started on PO ferrous sulfate. * occult stool negative (4) Metabolic acidosis: Code(s): E87.20 - Acidosis, unspecified Status: Acute Assessment and Plan: Likely from diarrhea * C-diff negative * Stool culture pending * occult stool ordered and negative (5) Hypertension: Code(s): I10 - Essential (primary) hypertension Status: Acute Assessment and Plan: Patient is normally on amlodipine 10 mg daily, Lasix 20 mg daily, and spironolactone 25 mg daily. * Given sepsis, blood pressure medications are on hold * Blood pressures are reviewed Plan DVT prophylaxis: Lovenox Glycemic control: na Code Status: Full Code Disposition: 73-year-old lady who presents with productive cough, fever, and chills and found have right lower lobe pneumonia. She has triggering sepsis for leukocytosis, fever, tachycardia, hypertension. She was started on IV antibiotics. Blood cultures with no growth to date, sputum culture negative. Procalcitonin was 1.1. She was also found to have iron deficient anemia and was started on ferrous sulfate. Diarrhea has slowed but not completely resolved. She has been up independently in the room. Repeat x-ray in the am, follow procal repeat. Likely discharge home with oral antibiotics on 01/25. Medication reconciliation obtained via the following: Nurse completed on admission The file time of this note does not necessarily represent the time the patient was seen. DS: Summary Hospital Course Hospital Course: Interval history: 73-year-old female with a history of hypertension, hypothyroidism presenting with fevers. She states on Wednesday she was having a decreased appetite and started to feel generally unwell with a sore throat. On Wednesday she started to feel worse wit
--- NOTE | 2024-01-26 14:12 | PM.DS ---
DS: Admitting Diagnosis Discharge Date 01/25 Admitting Diagnosis weakness, cough DS: Discharge Diagnosis Discharge Diagnosis (1) Sepsis: Code(s): A41.9 - Sepsis, unspecified organism Status: Acute Assessment and Plan: Chest X-ray concerning for RLL pneumonia WBC 12.0, febrile 100.4, tachycardic 102, hypoTN Blood cultures, lactic normal , procal 1.1 NS bolus 1 L now, then maintenance fluids at 100 per hour Started on Aztreonam and Azithromycin (2) Pneumonia: Code(s): J18.9 - Pneumonia, unspecified organism Status: Acute Assessment and Plan: Patient presents with reports of 104 fever at home with productive cough of coleman sputum, generalized malaise, body aches, and weakness for 3-4 days. She was seen at an urgent care yesterday and was started on Augmentin. Chest X-ray concerning for RLL pneumonia WBC 12.0, febrile 100.4, tachycardic 102, hypoTN No blood cultures were drawn prior to abx. Adding cultures and lactic now. Sputum culture if able. Procal 1.1 Legionella, mycoplasma, and pneumococcal antigen pending Given allergies to cephalosporins she was started on Aztreonam and Azithromycin IV fluid bolus of NS now and the maintenance of 100 ml per hour Tylenol as needed for fever Duo nebs q 6 hours, Mucinex BID Incentive spirometer, PEP (3) Anemia: Code(s): D64.9 - Anemia, unspecified Status: Acute Assessment and Plan: Hemoglobin 11.5 g/dl on admission. Today Hgb dropped to 8.7 g/dl. Patient has been having diarrhea. She states her stool was yellow but the last bowel movement she had was dark anemia panel showed iron deficiency. Started on PO ferrous sulfate. occult stool negative (4) Metabolic acidosis: Code(s): E87.20 - Acidosis, unspecified Status: Acute Assessment and Plan: Likely from diarrhea C-diff negative Stool culture pending occult stool ordered and negative (5) Hypertension: Code(s): I10 - Essential (primary) hypertension Status: Acute Assessment and Plan: Patient is normally on amlodipine 10 mg daily, Lasix 20 mg daily, and spironolactone 25 mg daily. Given sepsis, blood pressure medications are on hold Blood pressures are reviewed Plan DVT prophylaxis: Lovenox Glycemic control: na Code Status: Full Code Disposition: 73-year-old lady who presents with productive cough, fever, and chills and found have right lower lobe pneumonia. She has triggering sepsis for leukocytosis, fever, tachycardia, hypertension. She was started on IV antibiotics. Blood cultures with no growth to date, sputum culture negative. Procalcitonin was 1.1. She was also found to have iron deficient anemia and was started on ferrous sulfate. Diarrhea has slowed but not completely resolved. She has been up independently in the room. Repeat x-ray in the am, follow procal repeat. Likely discharge home with oral antibiotics on 01/25. Medication reconciliation obtained via the following: Nurse completed on admission The file time of this note does not necessarily represent the time the patient was seen. DS: Summary Hospital Course Hospital Course: Interval history: 73-year-old female with a history of hypertension, hypothyroidism presenting with fevers. She states on Wednesday she was having a decreased appetite and started to feel generally unwell with a sore throat. On Wednesday she started to feel worse with generalized weakness, fatigue, and productive cough. On Wednesday she went to an urgent care where she was told she had a sinus infection. She was started on Augmentin and took one dose. When she got home later that day she had a fever of 105. She decided to come to the ED for further evaluation. She says that she has been hospitalized in the past for sepsis but unsure of the source. 01/22: She is sitting i
[2024-01-28 16:03] LABS: Abnormal Protein Band 1 0.1 g/dL (NONE DETECTED); Albumin 2.7 g/dL (3.8-4.8); Alpha 1 Globulin 0.5 g/dL (0.2-0.3); Alpha 2 Globulin 0.8 g/dL (0.5-0.9); Beta 1 Globulin 0.3 g/dL (0.4-0.6); Gamma Globulin 0.2 g/dL (0.8-1.7)
== END 2024-01-26 15:40 | disposition home or self-care (01) | DRG 871 ==
LOC: ANHED 01-23 02:06 → ANH3MED 01-23 03:43
PROVIDERS: Nurse Practitioner Acute Care; Admitting Provider Internal Medicine; Emergency Provider Emergency Medicine; PCP Family Medicine; Visit Provider Nurse Practitioner
DX: A41.9 Sepsis, unspecified organism (principal); J18.9 Pneumonia, unspecified organism; E87.21 Acute metabolic acidosis; Z20.822 Contact with and (suspected) exposure to COVID-19; I10 Essential (primary) hypertension; A08.4 Viral intestinal infection, unspecified; D50.9 Iron deficiency anemia, unspecified; K21.9 Gastro-esophageal reflux disease without esophagitis; E87.6 Hypokalemia; E03.9 Hypothyroidism, unspecified; Z96.653 Presence of artificial knee joint, bilateral; Z90.49 Acquired absence of other specified parts of digestive tract
CPT/HCPCS: 36415; 71045; 80053; 81001; 82247; 82248; 82274; 82607; 82746; 83010; 83540; 83550; 83605; 83615; 83735; 84145; 84155; 84165; 84466; 85025; 85046; 85055; 87040; 87045; 87070; 87205; 87427; 87449; 87493; 87637; 93005; 94640; 94667; 96361; 96365; 96366; 96367; 96372; 96375; 99285; A9270; G0378; J0456; J0457; J1650; J2405; J3480; J7030

== ENCOUNTER 2024-03-06 16:58 | Emergency (ER) | payer MEDICARE, SELFPAY ==
[2024-03-06 17:05] VITALS: BP 89/55; PULSE 83; RESP 16; TEMP 36.5; O2SAT 100
[2024-03-06 17:10] VITALS: BP 89/55; PULSE 83; RESP 16; TEMP 36.5; O2SAT 100
--- NOTE | 2024-03-06 17:40 | ED.SKABFB ---
HPI - Skin/Abscess/Foreign Bdy General Chief complaint: Skin/Abscess/Foreign Body Stated complaint: Rash Time Seen by Provider: 03/06/24 17:40 Source: patient Mode of arrival: ambulatory Limitations: no limitations History of Present Illness HPI narrative: 73-year-old female presents with complaint of pain to left-sided back around to left hip and into left thigh for about 1 week. Has been seen her chiropractor for sciatica pain. Noticed rash starting 4 days ago. Rash getting progressively worse. Pain is mild. Other symptoms. All systems reviewed and negative except as noted above. Related Data Home Medications Medication Instructions Recorded Confirmed [id number] 250 mg-dha 90 1 cap PO DAILY 07/08/22 03/06/24 mg-epa 160 [id number] capsule (Ocuvite Adult 50 Plus) magnesium 500 mg tablet 500 mg PO BID 03/06/24 03/06/24 vitamin A-vitamin C-vit E-min 1 tablet PO DAILY 03/06/24 03/06/24 tablet Allergies Allergy/AdvReac Type Severity Reaction Status Date / Time Sulfa (Sulfonamide Allergy Mild Rash Verified 03/06/24 17:08 Antibiotics) cefuroxime Allergy Unknown Rash Verified 03/06/24 17:08 clindamycin Allergy Unknown Rash Verified 03/06/24 17:08 levofloxacin AdvReac Unknown Other Verified 03/06/24 17:08 Review of Systems Review of Systems: CONSTITUTIONAL: Denies fever, chills, or sweats. EYES: Denies visual changes, redness, or discharge. ENT: Denies rhinorrhea, congestion, sore throat, or otalgia. CARDIOVASCULAR: Denies chest pain, palpitations, or edema. RESPIRATORY: Denies cough or dyspnea. GASTROINTESTINAL: Denies abdominal pain, nausea, vomiting, or diarrhea. GENITOURINARY: Denies dysuria or hematuria. SKIN: Reports rash to left lower back left hip and lower abdomen. MUSCULOSKELETAL: Denies back pain, joint pain, or myalgia. NEUROLOGIC: Denies headache, numbness, or weakness. PSYCHIATRIC: Denies anxiety or depression. All other systems reviewed are negative, except as documented in HPI. [facility] Past Medical History Medical History Allergic rhinitis Anemia Essential hypertension H/O cardiac arrhythmia Hypothyroidism (acquired) Venous insufficiency of both lower extremities Vitamin D deficiency Surgical History Surgical History History of bilateral knee replacement History of laparoscopic cholecystectomy History of radiofrequency ablation procedure for cardiac arrhythmia Family History Family History Mother Patient's mother is in good health Father Patient's father is in good health Social History Social History Smoking status: Never smoker Second hand tobacco smoke exposure: No Alcohol intake: never Substance use: never Substance use type: does not use Do You Feel Safe in your Home?: Yes Lack of Transportation: No Lack of Food: Never True Current Housing: I Have Housing Concerned About Future Housing: No Difficulty Paying Gas/Electric Bills: No Difficulty Paying for Meds: No Currently Unemployed: No Education: Bachelor's Degree Difficulty w/ Childcare or Family Care: No Living arrangements: with family Occupation/Education: retired Gender identity (if verbalized by the patient): Female Sexual Orientation (if Verbalized by the Patient): Straight or Heterosexual Spiritual care concerns: No Agree to blood products: Yes Comments At time of signature, agree with nursing past medical, surgical, social and family history. There is no relevant family history pertinent to the presenting complaint. Exam Narrative: GENERAL: This is a well-nourished, well-developed patient, in no apparent distress. HEAD: normocephalic, atraumatic. EYES: PERRL. Sclera clear/white. Vision is grossly intact. EARS: E
[2024-03-06 17:52] VITALS: BP 138/64
== END 2024-03-06 17:55 | disposition home or self-care (01) ==
PROVIDERS: Emergency Provider Nurse Practitioner Family; PCP Family Medicine
DX: B02.9 Zoster without complications (principal); I10 Essential (primary) hypertension; E03.9 Hypothyroidism, unspecified; Z96.653 Presence of artificial knee joint, bilateral
CPT/HCPCS: 99213; G0463

== ENCOUNTER 2024-05-11 10:22 | Outpatient (CLI) | payer MEDICARE, SELFPAY ==
--- NOTE | ~2024-05-11 | XR_ITS ---
EXAMINATION: XR chest 2V DATE: 05/11/2024 10:46 INDICATION: Pneumonia. Intermittent fever. TECHNIQUE: frontal view of the chest was obtained. COMPARISON: Chest radiograph dated 01/26/2024 FINDINGS: Interval resolution of the prior airspace opacities in the right lung. Lungs are now clear with no fo cheryl airspace opacities, pulmonary edema, pleural effusion or pneumothorax. The cardiomediastinal silh ouette is normal. Presternal monitoring engineer projecting over the medial left breast. Moderate thoraci c spondylosis. IMPRESSION: 1. No acute cardiopulmonary disease. Reviewed, dictated and finalized at location B. 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
== END 2024-05-11 10:23 | disposition home or self-care (01) ==
LOC: MICIMG 10:23
PROVIDERS: PCP Family Medicine; Visit Provider Family Medicine
DX: J18.9 Pneumonia, unspecified organism (principal)
CPT/HCPCS: 71046

== ENCOUNTER 2024-06-05 15:33 | Outpatient (CLI) | payer MEDICARE, SELFPAY ==
--- NOTE | ~2024-06-05 | MR_ITS ---
MRI of the left shoulder Technique: Axial proton-density fat-sat images, coronal proton density fat-sat and T2 fat-sat images, and sagittal T1-weighted and T2 fat-sat images were acquired. Clinical History: Rotator cuff tear Findings: There is minimal AC joint degenerative change. Coracoclavicular, coracoacromial, and coraco humeral ligaments are intact. There is moderate to severe supraspinatus and infraspinatus tendinosis. No definite partial or full-t hickness tear seen. Subscapularis tendon is intact. Tendon of the long head of the biceps is intact. No labral tear evident. Inferior glenohumeral ligament is intact. There is mild chondromalacia the glenohumeral joint. There is minimal glenohumeral joint effusion. There is minimal fluid in the subacromial/subdeltoid bursa. N o muscle atrophy or edema. Impression: Moderate to advanced supraspinatus and infraspinatus tendinosis. No definite rotator cuff tear seen. No labral tear seen. Minimal degenerative changes, as above. Reviewed, dictated and finalized at [facility]. CHER SPECIAL MACHINE Impression: Moderate to advanced supraspinatus and infraspinatus tendinosis. No definite ro tator cuff tear seen. No labral tear seen. Minimal degenerative changes, as above.
== END 2024-06-05 15:34 | disposition home or self-care (01) ==
LOC: ANHIMG 15:35
PROVIDERS: PCP Family Medicine; Visit Provider Physician Assistant Surgical
DX: M67.814 Other specified disorders of tendon, left shoulder (principal); M19.012 Primary osteoarthritis, left shoulder
CPT/HCPCS: 73221

== ENCOUNTER 2024-08-23 10:14 | Outpatient (CLI) | payer MEDICARE, SELFPAY ==
--- NOTE | ~2024-08-23 | US_ITS ---
Limited Abdominal Sonogram: Real-time sonographic imaging of the right upper quadrant was performed. Clinical History: Upper abdominal pain Findings: The liver appears normal with no evidence of mass lesion or bile duct dilatation. Main por kyle vein demonstrates normal direction of flow. The gallbladder is absent, compatible prior cholecyst ectomy. The common bile duct measures 6 mm. The visualized pancreas, aorta, and IVC are unremarkable . Right kidney unremarkable, measuring 10.3 cm in length. Impression: Status post cholecystectomy, otherwise unremarkable exam. Reviewed, dictated and finalized at location M. Impression: Status post cholecystectomy, otherwise unremarkable exam.
== END 2024-08-23 10:15 | disposition home or self-care (01) ==
LOC: MICIMG 10:14
PROVIDERS: PCP Family Medicine; Visit Provider Family Medicine
DX: R10.10 Upper abdominal pain, unspecified (principal); Z90.49 Acquired absence of other specified parts of digestive tract
CPT/HCPCS: 76705

== ENCOUNTER 2025-01-03 09:52 | Emergency (ER) | payer MEDICARE, SELFPAY ==
--- NOTE | ~2025-01-03 | US_ITS ---
US venous doppler [facility] - 01/03/2025 10:34 CDT History: 74 years old Female with left lower extremity pain and swelling. Real-time sonographic images of the left lower extremity venous system were obtained. Color Doppler sonography and spectral waveform analysis were performed. No prior studies for comparison. The left sapheno-femoral junctions are patent. The left common femoral, superficial femoral, popliteal and posterior tibial veins are compressible and without evidence of echogenic thrombus. Impression: No evidence of deep venous thrombosis Reviewed, dictated and finalized at location A. Impression: No evidence of deep venous thrombosis
[2025-01-03 09:57] VITALS: BP 193/70; PULSE 74; RESP 16; TEMP 36.7; O2SAT 99
--- OUTSIDE RECORDS SUMMARY | 2025-01-03 10:01 | XMS_ITS | Clinical Summary ---
Author Organization [facility] Address [address] [place] [id number] Care Team Providers Care Automated Teller Manager Name Role Phone Katya Escalante MD Primary Care Provider [phone] Allergies Active Allergy Reactions Criticality Noted Date Comments Cefuroxime Rash Medium 07/23/2016 Clindamycin Rash Medium 07/23/2016 Levofloxacin Unknown 07/23/2016 Peanut Swelling Medium 07/23/2016 Mouth swelling Sulfa (Sulfonamide Antibiotics) Medications levothyroxine (SYNTHROID, LEVOTHROID) 75 mcg tablet Take 75 mcg by mouth. Active amLODIPine (NORVASC) 10 mg tablet once daily 05/28/2016 Active spironolactone (ALDACTONE) 25 mg tablet Take 25 mg by mouth. Active Lactobac no.41/Bifidobact no.7 (PROBIOTIC-10 ORAL) Take by mouth. Active Active Problems Problem Noted Date Diagnosed Date Psoriasis 06/22/2013 Skin neoplasm 06/22/2013 Disease of thyroid gland 11/30/2012 Arthritis 11/30/2012 Hypertension 12/18/2009 Surgical History Surgery Date Site/Laterality Comments ABLATION Catheter Ablation - (Added by TW Conv) GALLBLADDER SURGERY Gallbladder Surgery - (Added by TW Conv) ABLATION Catheter Ablation - (Added by TW Conv) RI COLONOSCOPY FLX DX W/MAXINE J SPEC WHEN PFRMD Complete Colonoscopy - (Added by TW Conv) CHOLECYSTECTOMY REPLACEMENT TOTAL KNEE Medical History Medical History Date Comments History of recurrent pneumonia H istory of bacterial pneumonia - (Added by TW Conv) Personal history of other en docrine, nutritional and metabolic disease History of thyroid d isease - (Added by TW Conv) Personal history of other di seases of the circulatory system History of hypertension - (A dded by AC Conv) Hypertension Acid reflux Arthritis Family History Medical History Relation Name Comments Heart attack Father Acute Myocardia l Infarction - (Added by AC Conv) Heart failure Father Ovarian cancer Other Ovarian Cance r - (Added by AC Conv) Relation Name Status Comments Brother Alive Father Mother Other Sister Alive Social History Tobacco Use Types Packs/Day Years Used Date Smoking Tobacco: Never Smokeless Tobacco: Never Alcohol Use Standard Drinks/Week Comments No 0 (1 standard drink = 0.6 oz pur e alcohol) Comments No Sex and Gender Information Value Date Recorded Sex Assigned at Not on file Legal Sex Female 6:44 PM 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 Gender Identity Not on file Sexual Orientation Not on file Obstetrics History Para Term AB IAB SAB Ectopic Multiple Livin g Live Births 2 2 2 2 2 Date Outcome GA Total Labor Labor/2nd/3rd Weight Sex Type Anes PTL Solange A1 A5 Name Clin Term Term Last Filed Vital Signs Vital Sign Reading Time Taken Comments Blood Pressure 155/85 02/23/2018 2:36 PM CDT Pulse 86 02/23/2018 2:36 PM CDT Temperature 36.9 C (98.5 F) 02/23/2018 2:36 PM CDT Respiratory Rate - - Oxygen Saturation 98% 02/23/2018 2:36 PM CDT Inhaled Oxygen Concentration - - Weight 91.4 kg (201 lb 9.6 oz) 02/23/2018 2:36 P M CDT Height 157.5 cm (5' 2) 05/01/2015 1:32 PM PSYCHIATRIC 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 Body Mass Index 36.87 05/01/2015 1:32 PM PSYCHIATRIC 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 Plan of Treatment Health Maintenance Due Date Last Done Comments Colon Cancer Screening-Colonoscopy 1950 Depression Screening 1950 Fall Risk Assessment 1950 Hepatitis C Screening 1950 Osteoporosis Screening-Bone Density Scan 1950 DTaP/Tdap/Td Vaccine (1 - Tdap) 1960 Hepatitis B Screening 1967 Zoster Vaccine (1 of 2) 1999 Well Visit 65+ 2014 Influenza Vaccine (#1) 2025 9, 03/19/2018, 03/27/2013 Pneumococcal vaccine 65+ Completed 04/01/2018, 01/15 Breast Cancer Screening-Mammogram Discontinued 08/22/2024, 07/19/2023, 06/03/2022, Additional history exists Procedures Procedure Name Priority Date/Time Associated Diagnosis Comments SCREENING MAMMOGRAM BILATERAL W RAMON Schedule Routine, Read Routine (OP Routine) 08/22/2024 10:15 AM CDT Screening mammogram, encounter for from Last 3 Months or Most Recently Relevant to Health Maintenance Results * Screening Mammogram Bilateral [place] (08/22/2024 10:15 AM CDT) Anatomical Region Laterality Modality Breast Bilateral Mammography Narrative 08/23/2024 3:26 PM CDT Mammogram Technique: Bilateral Digital Breast Tomosynthesis, Bilateral C-view 2D Screening mammogram. Views obtained: bilateral craniocaudal and bilateral mediolateral oblique. Computer Aided Detection was performed. Mammogram Findings: The present examination has been compared to prior imaging studies performed at [facility] on 05/01/2015, 02/22/2018 and 06/27/2019, and at [facility] on 02/19/2021, 06/03/2022 and 07/19/2023. There are scattered areas of fibroglandular density. There is no suspicious abnormality in either breast. There are no significant changes from the prior study. Impression: There is no mammographic evidence of malignancy. Annual screening mammography is recommended. OVERALL FINAL ASSESSMENT: BI-RADS CATEGORY 1: Negative. Procedure Note Pamela Alston MD - 08/23/2024 Mammogram Technique: Bilateral Digital Breast Tomosynthesis, Bilateral C-view 2D Screening mammogram. Views obtained: bilateral craniocaudal and bilateral mediolateral oblique. Computer Aided Detection was performed. Mammogram Findings: The present examination has been compared to prior imaging studies performed at [facility] on 05/01/2015, 02/22/2018 and 06/27/2019, and at [facility] on02/19/2021, 06/03/2022 and 07/19/2023. There are scattered areas of fibroglandular density. There is no suspicious abnormality in either breast. There are no significant changes from the prior study. Impression: There is no mammographic evidence of malignancy. Annual screening mammography is recommended. OVERALL FINAL ASSESSMENT: BI-RADS CATEGORY 1: Negative. us Self Screening Mammogram IMG MAMMO PROCEDURES Fi nal Result from Last 3 Months or Most Recently Relevant to Health Maintenance Insurance MEDICARE RAILROAD AET SENIOR SUPPLEMENT MEDICARE RAILROAD AETNA SENIOR SUPPLEMENT MEDICARE RAILROAD Care Teams Automated Teller Manager Relationship Specialty Start Date End Date Katya Escalante MD PCP - General Family Medicine 01/27/18
--- OUTSIDE RECORDS SUMMARY | 2025-01-03 10:01 | XMS_ITS | Clinical Summary ---
Author Organization [facility] Address [address] Zaragoza: Epic Prelude ADT [place] [address] Care Team Providers Care Farm Reporter Name Role Phone Unavailable Primary Care Provider Unavailabl e Encounters Date Type Department Care Team Description 10/17/2024 Refill [facility] Primary Care [place] [address] [place] [address] Kymberly Webber PA from Last 3 Months Social History Tobacco Use Types Packs/Day Years Used Date Smoking Tobacco: Never Assessed Comments Unknown Sex and Gender Information Value Date Recorded Sex Assigned at Not on file Legal Sex Female 10:49 PM CDT Gender Identity Not on file Sexual Orientation Not on file Plan of Treatment Health Maintenance Due Date Last Done Comments DTAP/TDAP/TD VACCINES (1 - Tdap) 1968 COLORECTAL SCREENING 1994 Colorectal Cancer Screening 1994 FIT-DNA Q 3 years 1994 FIT/FOBT Q 1 year 1994 Flex Sig/CT Colonography Q 5 years 1994 PNEUMOCOCCAL VACCINE 50+ YEARS (1 of 1 - PCV) 07/04/19 00 ZOSTER VACCINE (1 of 2) 1999 OSTEOPOROSIS SCREENING 2014 RSV VACCINE (60+ or ) (1 - 1-dose 75+ series) 2024 INFLUENZA VACCINE (#1) 2024
--- OUTSIDE RECORDS SUMMARY | 2025-01-03 10:01 | XMS_ITS | Encounter Summary ---
Author Organization [facility] Address [address] [place] [address] Care Team Providers Care Cardiac Care Unit Nurse Name Role Phone Katya Escalante MD Primary Care Provider [phone] Alejandro Ugarte MD Unavailable Encounter Details Date Type Department Care Team (Late st Contact Info) Description 12/25/2021 Lab Requisition [facility] Care DermPath Lab [address] [facility], [place] [phone] Ken [place] [place] [address] Social History Tobacco Use Types Packs/Day Years Used Date Smoking Tobacco: Never Alcohol Use Standard Drinks/Week Comments No 0 (1 standard drink = 0.6 oz pur e alcohol) Comments No Sex and Gender Information Value Date Recorded Sex Assigned at Not on file Legal Sex Female 2:26 PM CDT Gender Identity Not on file Sexual Orientation Not on file documented as of this encounter Functional Status * Is person deaf or have serious hearing difficulty? Answer Date of Assessment Author No 07/23/2016 4:14 PM Vijay Payton RN * Is person blind or have serious difficulty seeing? Answer Date of Assessment Author No 07/23/2016 4:14 PM Vijay Payton RN * Does person have serious difficulty walking/climbing stairs? Answer Date of Assessment Author No 07/23/2016 4:14 PM Vijay Payton RN * Does person have difficulty dressing/bathing? Answer Date of Assessment Author No 07/23/2016 4:14 PM Vijay Payton RN * Does person have difficulty doing errands alone? Answer Date of Assessment Author No 07/23/2016 4:14 PM Vijay Payton RN documented as of this encounter Mental Status * Does person have difficulty concentrating/remembering/making decisions? Answer Entry Date Author No 07/23/2016 4:14 PM Vijay Payton RN documented in this encounter Plan of Treatment Not on file documented as of this encounter Procedures Procedure Name Priority Date/Time Associated Diagnosis Comments DERMATOPATHOLOGY Routine 12/24/2021 12:0 0 AM CDT documented in this encounter Results * DERMATOPATHOLOGY (12/24/2021 12:00 AM CDT) Case Report Dermatopathology Report Case: [id number] Authorizing Provider: Ken Smith MD Collected: 12/24/2021 12:00 AM Ordering Location: [facility] DermPath Lab Received: 12/25/2021 01:32 PM Pathologist: Tara Barr MD Specimens: A) - Skin, right ear incisura B) - Skin, left of midline ant neck C) - Skin, right lower back 2 5:55 PM CDT DERMATOPATHOLOGY LABORATORY Final Diagnosis Specimen A. SKIN, right ear incisura: SEBACEOUS HYPERPLASIA (L73.8) (see microscopic description) Specimen B. 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 SKIN, right lower back: BASAL CELL CARCINOMA, NODULAR TYPE (C44.519) 2 5:55 PM CDT DERMATOPATHOLOGY LABORATORY at 1755 CDT Clinical History A: R/O BCC, Cyst, SH B: R/O Dysplastic nevus C: R/O BCC 2 5:55 PM CDT DERMATOPATHOLOGY LABORATORY Gross Description Specimen A: Received is one formalin filled container labeled with the patient's name and designated right ear incisura. The specimen consists of a shave biopsy measuring 2x2x1 mm. Jar 0. Specimen B: Received is one formalin filled container labeled with the patient's name and designated left of midline ant neck. The specimen consists of a shave biopsy measuring 9x9x5 mm. Jar 0. Specimen C: Received is one formalin filled container labeled with the patient's name and designated right lower back. The specimen consists of a shave biopsy measuring 10x9x1 mm. Jar 0. 2 5:55 PM CDT DERMATOPATHOLOGY LABORATORY Microscopic Description Specimen A. SKIN, right ear incisura: There are prominent sebaceous gland lobules surrounding a dilated hair follicle. Additional deeper sections were obtained and reviewed. Specimen B. SKIN, left of midline ant neck: Sections show a proliferation of spindled and S-shaped cells within the dermis. The stromal collagen is delicate and pale. Specimen C. SKIN, right lower back: Within the dermis there are aggregates of basaloid cells with a high nuclear to cytoplasmic ratio and peripheral palisading. 2 5:55 PM CDT DERMATOPATHOLOGY LABORATORY Disclaimer An external and internal positive and negative controls are appropriate for the histochemical, immunohistochemical and immunofluorescence stain(s) in this case (if any), except where stated explicitly. The performance characteristics of the stain(s) cited in this report were developed and its performance characteristic determined by the Dermatopathology Laboratory at [facility], directed by Dr. Bernard Barr. These tests need not be, and therefore are not, approved by the [place] Food and Drug Administration. The tests are used for clinical purposes. Billing Codes Specimen Charges Stain Charges 31977 86399 66310 1 1 1 2 5:55 PM CDT DERMATOPATHOLOGY LABORATORY Embedded Images 2 5:55 PM CDT DERMATOPATHOLOGY LABORATORY Pathology/Cytology TISSUE SPECIMEN FROM SKIN / Unknown 12/24/2021 12/25/2021 1:32 PM CDT Miscellaneous samples (specimen) TISSUE SPECIMEN FROM SKIN / Unknown 12/24/2021 12/25/2021 1:32 PM CDT Miscellaneous samples (specimen) TISSUE SPECIMEN FROM SKIN / Unknown 12/24/2021 12/25/2021 1:32 PM CDT Ken Smith MD LAB - PATHOLOGY/CYTOLOGY ORD ERABLES Final Result DERMATOPATHOLOGY LABORATORY [facility] - Department of Dermatology [facility] Medicine [address] [place] [address], [address] [phone] documented in this encounter Visit Diagnoses Not on filedocumented in this encounter Care Teams Cardiac Care Unit Nurse Relationship Specialty Start Date End Date Katya Escalante MD [address] [place] [address] PCP - General Family Medicine 12/12/15 [place] [address] [address] Orthopedic Surgery 12/12/15 documented as of this encounter
--- OUTSIDE RECORDS SUMMARY | 2025-01-03 10:01 | XMS_ITS | Encounter Summary ---
Author Organization [facility] Address [address] [place] [address] Care Team Providers Care Cheese Grader Name Role Phone Katya Escalante MD Primary Care Provider [phone] Alejandro Ugarte MD Unavailable [phone] Encounter Details Date Type Department Care Team (Late st Contact Info) Description 08/12/2016 [facility] Outpatient Visit [facility] Orthopedics [address] [facility], [address] [phone] Unknown, Provider Social History Tobacco Use Types Packs/Day Years [...] on file documented as of this encounter Visit Diagnoses Not on filedocumented in this encounter Care Teams Cheese Grader Relationship Specialty Start Date End Date Katya Escalante MD [address] [place] [address] PCP - General Family Medicine 12/12/15 [place] [address] [place] [address] Orthopedic Surgery 12/12/15 documented as of this encounter
--- OUTSIDE RECORDS SUMMARY | 2025-01-03 10:01 | XMS_ITS | Clinical Summary ---
Author Organization [facility] Address [address] [facility] [place] [address] Care Team Providers Care Crane Rigger Name Role Phone Katya Escalante MD Primary Care Provider Alejandro Ugarte MD Unavailable [phone] Source Comments [facility],non-owned Affiliates and Associated Physician Practices is amultiple site organization consisting of ambulatory clinics and hospital sitesin [place], [place], [place] and [place]. This disclosure is being madepursuant to the Care Everywhere program and may not contain all information available regarding this patient. Last updated 18.[facility] Allergies Active Allergy Reactions Criticality Noted Date Comments Fd&C Blue #2-Ramipril Swelling 07/23/2016 Mouth swelling Cefuroxime Rash Medium 07/23/2016 Clindamycin Rash Medium 07/23/2016 Levofloxacin 07/23/2016 Sulfa Drugs Rash Medium 12/12/2015 Medications * Be aware that medications may not be up to date on this document. Alwaysverify current medications with the patient. levothyroxine (SYNTHROID) 75 MCG tablet Take 75 mcg by mouth daily before breakfast Active spironolactone (ALDACTONE) 25 MG tablet Take 25 mg by mouth once daily Active cetirizine (ZYRTEC ALLERGY) 10 MG gel capsule Take 10 mg by mouth once daily Active Cholecalciferol (VITAMIN D PO) Take 2,000 Units by mouth once daily Active RaNITidine HCl (ACID PROCUREMENT CONSULTANT PO) Take 150 mg by mouth once daily Active Probiotic Product (PROBIOTIC DAILY PO) Take by mouth once daily Active Cyanocobalamin (B-12) 1000 MCG Take by mouth once daily Active amLODIPine (NORVASC) 10 MG tablet once daily 7 Active Nutritional Supplements (ESTROVEN PO) Take by mouth once daily Active Glucosamine-Mert droit-Vit C-Mn (GLUCOSAMINE CHONDR 1500 COMPLX PO) Take by mouth once daily Reported on 08/17/2016 Active amoxicillin (AMOXIL) 500 MG capsuleIndicatio ns:Status post total right knee replacement Take 4 capsules by mouth pre-Procedure once for 1 dose Take 4 pills 1hr prior to dental appointment 12 capsule 1 7 Active Active Problems Problem Noted Date Diagnosed Date Status post left knee replacement 08/06/2017 Acute pain of left shoulder 02/17/2016 Hypertension Family History Medical History Relation Name Comments Heart Disease Father Relation Name Status Comments Father Social History Tobacco Use Types Packs/Day Years Used Date Smoking Tobacco: Never Alcohol Use Standard Drinks/Week Comments No 0 (1 standard drink = 0.6 oz pur e alcohol) Comments No Sex and Gender Information Value Date Recorded Sex Assigned at Not on file Legal Sex Female 2:26 PM CDT Gender Identity Not on file Sexual Orientation Not on file Last Filed Vital Signs Vital Sign Reading Time Taken Comments Blood Pressure 138/72 07/25/2016 8:17 AM ASSOCIATE PROFESSOR OF SOCIOLOGY Pulse 95 07/25/2016 8:17 AM ASSOCIATE PROFESSOR OF SOCIOLOGY Temperature 36.9 C (98.4 F) 07/25/2016 8:17 AM ASSOCIATE PROFESSOR OF SOCIOLOGY Respiratory Rate 16 07/25/2016 8:17 AM ASSOCIATE PROFESSOR OF SOCIOLOGY Oxygen Saturation 100% 07/25/2016 8:17 AM ASSOCIATE PROFESSOR OF SOCIOLOGY Inhaled Oxygen Concentration - - Weight 88.9 kg (196 lb) 08/17/2016 4:42 PM CDT Height 162.6 cm (5' 4) 08/17/2016 4:42 PM CDT Body Mass Index 33.64 08/17/2016 4:42 PM CDT Plan of Treatment Health Maintenance Due Date Last Done Comments BONE DENSITY TESTING 1950 COLOGUARD (AGES 45-75) - COL ON CA SCREENING 1949 COLON MONITORING 1949 COLONOSCOPY - COLON CA SCREENING 1949 CT COLONOGRAPHY - COLON CA SCREENING 1949 Colorectal Cancer Screening 1949 FIT - COLON CA SCREENING 1949 FLEX SIG - COLON CA SCREENING 1949 LIPID TESTING 1949 MAMMOGRAM 1949 MEDICARE AWV 12 MONTHS 1949 HEPATITIS C SCREENING 06/30/1967 DTAP/TDAP/TD VACCINES (1 - Tdap) 1968 PNEUMOCOCCAL VACCINE 50+ (1 of 1 - PCV) 1999 ZOSTER VACCINE (1 of 2) 1999 COVID-19 VACCINE (1 - 2023-2 5 season) 2024 DEPRESSION SCREENING 05/17/2024 Respiratory Syncytial Virus (RSV) Vaccine Pt: or over 60 yrs (1 - 1-dose 75+ series) 2024 INFLUENZA VACCINE (#1) 2025 HEPATITIS B VACCINE Aged Out No longe r eligible based on patient's age to complete this topic HIB VACCINE Aged Out No longer eligi ble based on patient's age to complete this topic HPV VACCINE Aged Out No longer eligi ble based on patient's age to complete this topic MENINGOCOCCAL (Group B) VACC INE SHARED DECISION-MAKING Aged Out No longer eligibl e based on patient's age to complete this topic MENINGOCOCCAL GROUPS A/C/Y/W VACCINE Aged Out No longer eligible b ased on patient's age to complete this topic Medical Devices Implanted Type Area Liquified Natural Gas Specialist Device Identifier Shelf Expiration Date Model / Serial / Lot Cmnt Bone Co Hv 40gm Implanted:Qty: 1 on 02/20/2016 by Alejandro Ugarte MD at [facility] Right: Knee [employer] 07/14/2017 [id number] / / [id number] Tray Tib 67mm Kn Cocr I Beam Implanted:Qty: 1 on 02/20/2016 by Alejandro Ugarte MD at [facility] Right: Knee [employer] 03/21/2025 [id number] / / [id number] Cmpnt Fem Kn Rt Cr Cmnt Prm Vngrd Intlk Implanted:Qty: 1 on 02/20/2016 by Alejandro Ugarte MD at [facility] Right: Knee [employer] 12/10/2025 [id number] / / [id number] Cmpnt Ptlr 28mm 1 Pg Wire Ascnt Arcm Kn Implanted:Qty: 1 on 02/20/2016 by Alejandro Ugarte MD at [facility] Right: Knee [employer] 12/15/[id number] / / [id number] Brng [id number] Vngrd Arcm Kn Ant Stab Implanted:Qty: 1 on 02/20/2016 by Alejandro Ugarte MD at [facility] Right: Knee [employer] 10/21/2020 [id number] / / [id number] Brng [id number] Vngrd Arcm Kn Ant Stab Implanted:Qty: 1 on 07/23/2016 by Alejandro Ugarte MD at [facility] Left: Knee [employer] 05/29/2020 [id number] / / [id number] Cmnt Bone Co Hv 40gm Implanted:Qty: 1 on 07/23/2016 by Alejandro Ugarte MD at [facility] Left: Knee [employer] 04/15/2017 [id number] / / [id number] Cmpnt Ptlr 28mm 1 Pg Wire Ascnt Arcm Kn Implanted:Qty: 1 on 07/23/2016 by Alejandro Ugarte MD at [facility] Left: Knee [employer] 01/23/[id number] / / [id number] Cr Femoral Left Implanted:Qty: 1 on 07/23/2016 by Alejandro Ugarte MD at [facility] Left: Knee [id number] 06/26/2026 [id number] / / [id number] Fixed I Beam Tibial Plate Implanted:Qty: 1 on 07/23/2016 by Alejandro Ugarte MD at [facility] Left: Knee [id number] 05/28/2026 [id number] / / [id number] Insurance MEDICARE COMMERCIAL GENERIC MEDICARE Advance Directives Documents on File Type Date Recorded Patient Parking Lot Attendant And Cashier Expl anation Adv Directive/Living Will/POA 02/20/2016 7:24 AM LIVING WILL * Full Code (Latest Code Status on File) Date Activated Date Inactivated Comments 07/23/2016 2:36 PM 07/25/2016 1:30 PM * Full Code Date Activated Date Inactivated Comments 02/20/2016 11:00 AM 02/23/2016 1:35 PM Care Teams Crane Rigger Relationship Specialty Start Date End Date Katya Escalante MD [address] [place] [address] PCP - General Family Medicine 12/12/15 [place] [address] [address] Orthopedic Surgery 12/12/15
--- OUTSIDE RECORDS SUMMARY | 2025-01-03 10:01 | XMS_ITS | Clinical Summary ---
Author Organization [facility] Address [address] [address] Phone Care Team Providers Care Turbine Engineer Name Role Phone Katya Escalante MD Primary Care Provider [phone] Social History Tobacco Use Types Packs/Day Years Used Date Smoking Tobacco: Never Assessed Comments Unknown Sex and Gender Information Value Date Recorded Sex Assigned at Not on file Legal Sex Female 9:25 AM MEDICAL RECORD CONSULTANT Gender Identity Not on file Sexual Orientation Not on file Plan of Treatment Health Maintenance Due Date Last Done Comments Hepatitis C Virus (HCV) Screening 1949 TdaP Immunization 1949 Cologuard 1994 Immunochemical Fecal Occult Blood 1994 Pneumococcal Immunization (5 0+ years) (1 of 1 - PCV) 1999 Zoster Immunization (1 of 2) 1999 Colonoscopy 07/22/2023 07/21/2018 Colorectal Cancer Screening 07/22/2023 SARS-COV-2 Immunization ( - season) 2024 Respiratory Syncytial Virus (RSV) Immunization (Adult) (1 - 1-dose 75+ series) 2024 Influenza Immunization (#1) 2025 Hepatitis B Immunization Aged Out No longer eligible based on patient's age to complete this topic Human Papillomavirus (HPV) Immunization Aged Out No longer eligible b ased on patient's age to complete this topic Meningococcal Immunization (ACWY) Aged Out No longer eligible based on patient's age to complete this topic Rotavirus Immunization Aged Out No lo nger eligible based on patient's age to complete this topic Procedures Procedure Name Priority Date/Time Associated Diagnosis Comments HM COLONOSCOPY Routine 07/21/2018 from Last 3 Months or Most Recently Relevant to Health Maintenance Results * COLONOSCOPY (07/21/2018) Denver Jacob DO PROCEDURE/MINOR SURGICAL ORDERA BLES Final Result from Last 3 Months or Most Recently Relevant to Health Maintenance Insurance MEDICARE RAILROAD [employer] SENIOR SUPPLEMENTAL Care Teams Turbine Engineer Relationship Specialty Start Date End Date Katya Escalante MD [address] [place] [address] PCP - General Family Medicine 04/04/18
--- OUTSIDE RECORDS SUMMARY | 2025-01-03 11:03 | XMS_ITS | Clinical Summary ---
Author Organization [facility] Address [address] [address] Phone Care Team Providers Care Commercial Collections Specialist Name Role Phone Katya Escalante MD Primary Care Provider [phone] Social History Tobacco Use Types Packs/Day Years Used Date Smoking Tobacco: Never Assessed Comments Unknown Sex and Gender Information Value Date Recorded Sex Assigned at Not on file Legal Sex Female 9:25 AM BOOM PUMP OPERATOR Gender Identity Not on file Sexual Orientation [...] MEDICARE RAILROAD [employer] SENIOR SUPPLEMENTAL Care Teams Commercial Collections Specialist Relationship Specialty Start Date End Date Katya Escalante MD [address] [place] [address] PCP - General Family Medicine 04/04/18
--- OUTSIDE RECORDS SUMMARY | 2025-01-03 11:03 | XMS_ITS | Encounter Summary ---
Author Organization [facility] Address [address] [facility] [place] [address] Care Team Providers Care Former Hand Name Role Phone Katya Escalante MD Primary Care Provider [phone] Alejandro Ugarte MD Unavailable Encounter Details Date Type Department Care Team (Late st Contact Info) Description 12/25/2021 Lab Requisition [facility] Care DermPath Lab [address] [facility], [place] [phone] Ken Smith [place] [address] Social History Tobacco Use Types [...] AM CDT) Case Report Dermatopathology Report Case: [id number] Authorizing Provider: Ken Smith MD Collected: 12/24/2021 12:00 AM Ordering Location: [facility] DermPath Lab Received: 12/25/2021 01:32 PM Pathologist: [...] characteristic determined by the Dermatopathology Laboratory at [facility], directed by Dr. Bernard Barr. These tests need not be, and therefore are not, approved by the [place] Food and Drug Administration. The tests are used for clinical purposes. Billing Codes Specimen Charges Stain Charges 67943 85277 600[address] 1 1 1 2 5:55 PM CDT [...] PATHOLOGY/CYTOLOGY ORD ERABLES Final Result DERMATOPATHOLOGY LABORATORY [facility] - Department of Dermatology [facility] Medicine [address] [place] [address], [address] [phone] documented in this encounter Visit Diagnoses Not on filedocumented in this encounter Care Teams Former Hand Relationship Specialty Start Date End Date Katya Escalante MD [address] [place] [address] PCP - General Family Medicine 12/12/15 [place] [address] [address] Orthopedic Surgery 12/12/15 documented as of this encounter
--- OUTSIDE RECORDS SUMMARY | 2025-01-03 11:03 | XMS_ITS | Clinical Summary ---
Author Organization [facility] Address [address] Zaragoza: Epic Prelude ADT [place] [address] Care Team Providers Care Pattern Setter Name Role Phone Unavailable Primary Care Provider Unavailabl e Encounters Date Type Department Care Team Description 10/17/2024 Refill [facility] Primary Care [place] [address] [place] [address] Kymberly Webber PA from Last [...]
--- OUTSIDE RECORDS SUMMARY | 2025-01-03 11:03 | XMS_ITS | Encounter Summary ---
Author Organization [facility] Address [address] [facility] [place] [address] Care Team Providers Care Payroll Accounting Clerk Name Role Phone Katya Escalante MD Primary Care Provider [phone] Alejandro Ugarte MD Unavailable Encounter Details Date Type Department Care Team (Late st Contact Info) Description 08/12/2016 [facility] Outpatient Visit [facility] Orthopedics [address] [facility], [address] [phone] Unknown, Provider Social History Tobacco Use Types [...] on filedocumented in this encounter Care Teams Payroll Accounting Clerk Relationship Specialty Start Date End Date Katya Escalante MD [address] [place] [address] PCP - General Family Medicine 12/12/15 [place] [address] [place] [address] Orthopedic Surgery 12/12/15 documented as of this encounter
--- OUTSIDE RECORDS SUMMARY | 2025-01-03 11:03 | XMS_ITS | Clinical Summary ---
Author Organization [facility] Address [address] [place] [place] [address] Care Team Providers Care Orthopedic Shoes Salesperson Name Role Phone Katya Escalante MD Primary Care Provider Alejandro Ugarte MD Unavailable [phone] [facility],non-owned Affiliates and Associated Physician Practices is amultiple site organization consisting of ambulatory clinics and hospital sitesin [place], [place], [place] and [place]. This disclosure is being madepursuant to the Care Everywhere program and may not contain all information available regarding this patient. Last updated 18.[facility] Allergies Active Allergy Reactions Criticality Noted Date [...] mouth once daily Active RaNITidine HCl ([facility] N[facility]SE [facility] PO) Take 150 mg by mouth once [...] Comments Blood Pressure 138/72 07/25/2016 8:17 AM BOTTLE HOUSE CLEANERS SUPERVISOR Pulse 95 07/25/2016 8:17 AM BOTTLE HOUSE CLEAN[employer] SUPERVISOR Temperature 36.9 C (98.4 F) 07/25/2016 8:17 AM BOTTLE HOUSE CLEANERS SUPERVISOR Respiratory Rate 16 07/25/2016 8:17 AM BOTTLE HOUSE [employer] SUPERVISOR Oxygen Saturation 100% 07/25/2016 8:17 AM BOTTLE HOUSE [employer]AN[employer] SUPERVISOR Inhaled Oxygen Concentration - - Weight 88.9 [...] this topic Medical Devices Implanted Type Area Egg Processing Supervisor Device Identifier Shelf Expiration Date Model / Serial / Lot Cmnt Bone Co Hv 40gm Implanted:Qty: 1 on 02/20/2016 by Alejandro Ugarte MD at [facility] Right: Knee [employer] 07/14/2017 [id number] / / [id number] Tray Tib 67mm Kn Cocr I Beam Implanted:Qty: 1 on 02/20/2016 by Alejandro Ugarte MD at [facility] Right: Knee [employer] 03/21/2025 [id number] / / [id number] Cmpnt Fem Kn Rt Cr Cmnt Prm Vngrd Intlk Implanted:Qty: 1 on 02/20/2016 by Alejandro Ugarte MD at [facility] Right: Knee [employer] 12/10/2025 [id number] / / [id number] Cmpnt Ptlr 28mm 1 Pg Wire Ascnt Arcm Kn Implanted:Qty: 1 on 02/20/2016 by Alejandro Ugarte MD at [facility] Right: Knee [employer] 12/15/[id number] / / [id number] Brng [id number] Vngrd Arcm Kn Ant Stab Implanted:Qty: 1 on 02/20/2016 by Alejandro Ugarte MD at [facility] Right: Knee [employer] 10/21/2020 [id number] / / [id number] Brng [id number] Vngrd Arcm Kn Ant Stab Implanted:Qty: 1 on 07/23/2016 by Alejandro Ugarte MD at [facility] Left: Knee [employer] 05/29/2020 [id number] / / [id number] Cmnt Bone Co Hv 40gm Implanted:Qty: 1 on 07/23/2016 by Alejandro Ugarte MD at [facility] Left: Knee [employer] 04/15/2017 [id number] / / [id number] Cmpnt Ptlr 28mm 1 Pg Wire Ascnt Arcm Kn Implanted:Qty: 1 on 07/23/2016 by Alejandro Ugarte MD at [facility] Left: Knee [employer] 01/23/[id number] / / [id number] Cr Femoral Left Implanted:Qty: 1 on 07/23/2016 by Alejandro Ugarte MD at [facility] Left: Knee [id number] 06/26/2026 [id number] / / [id number] Fixed I Beam Tibial Plate Implanted:Qty: 1 on 07/23/2016 by Alejandro Ugarte MD at [facility] Left: Knee [id number] 05/28/2026 [id number] / / [id number] Insurance MEDICARE COMMERCIAL GENERIC MEDICARE Advance Directives Documents on File Type Date Recorded Patient Textile Examiner Expl anation Adv Directive/Living Will/POA 02/20/2016 7:24 AM LIVING WILL * Full Code (Latest Code Status on File) Date Activated Date Inactivated Comments 07/23/2016 2:36 PM 07/25/2016 1:30 PM * Full Code Date Activated Date Inactivated Comments 02/20/2016 11:00 AM 02/23/2016 1:35 PM Care Teams Orthopedic Shoes Salesperson Relationship Specialty Start Date End Date Katya Escalante MD [address] [place] [address] PCP - General Family Medicine 12/12/15 [place] [id number] [address] Orthopedic Surgery 12/12/15
--- OUTSIDE RECORDS SUMMARY | 2025-01-03 11:03 | XMS_ITS | Clinical Summary ---
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 Name Role Phone Katya Escalante MD Primary Care Provider [phone] Allergies Active Allergy Reactions Criticality Noted Date [...] Catheter Ablation - (Added by TW Conv) LA COLONOSCOPY FLX DX W/MAXINE J SPEC WHEN [...] on file Legal Sex Female 6:44 PM [employer] Gender Identity Not on file Sexual Orientation [...] 157.5 cm (5' 2) 05/01/2015 1:32 PM [employer] Body Mass Index 36.87 05/01/2015 1:32 PM [employer] Plan of Treatment Health Maintenance Due Date [...] compared to prior imaging studies performed at [facility] on 05/01/2015, 02/22/2018 and 06/27/2019, and at [facility] on 02/19/2021, 06/03/2022 and 07/19/2023. There are [...] compared to prior imaging studies performed at [facility] on 05/01/2015, 02/22/2018 and 06/27/2019, and at [facility] on02/19/2021, 06/03/2022 and 07/19/2023. 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
--- NOTE | 2025-01-03 11:23 | ED.EXTPRO ---
HPI - Extremity Problem General Chief complaint: Extremity Problem,Nontraumatic Stated complaint: DVT rule out Time Seen by Provider: 01/03/25 10:06 Source: patient Mode of arrival: ambulatory Limitations: no limitations History of Present Illness HPI Narrative: This is a 74-year-old female that presents to the emergency department for left lower extremity swelling and pain. Reports history of cellulitis in this leg. Was prompted to be seen in the ER to rule out DVT. Denies fevers. Related Data Home Medications ?Medication ?Instructions ?Recorded ?Confirmed ?Last Taken ?Type pwhanzpu-bbz-gigqz5 250 mg-dha 90 1 cap PO DAILY 07/08/22 11/29/24 Unknown History mg-epa 160 ve-daoe-pbjd-zeax capsule (Ocuvite Adult 50 Plus) magnesium 500 mg tablet 500 mg PO BID 03/06/24 11/29/24 Unknown History Allergies Allergy/AdvReac Type Severity Reaction Status Date / Time Sulfa (Sulfonamide Allergy Mild Rash Verified 01/03/25 09:59 Antibiotics) cefuroxime Allergy Unknown Rash Verified 01/03/25 09:59 clindamycin Allergy Unknown Rash Verified 01/03/25 09:59 levofloxacin AdvReac Unknown Other Verified 01/03/25 09:59 Review of Systems Review of Systems: All systems reviewed & are unremarkable except as noted in HPI and below PMFSH Past Medical History Medical History Venous insufficiency of both lower extremities Allergic rhinitis Anemia Essential hypertension H/O cardiac arrhythmia Hypothyroidism (acquired) Vitamin D deficiency Surgical History Surgical History History of bilateral knee replacement History of laparoscopic cholecystectomy History of radiofrequency ablation procedure for cardiac arrhythmia Family History Family History Mother Patient's mother is in good health Father Patient's father is in good health Social History Social History Smoking status: Never smoker Second hand tobacco smoke exposure: No Alcohol intake: never Substance use: never Substance use type: does not use Do You Feel Safe in your Home?: Yes Lack of Transportation: No Lack of Food: Never True Current Housing: I Have Housing Concerned About Future Housing: No Difficulty Paying Gas/Electric Bills: No Difficulty Paying for Meds: No Currently Unemployed: No Education: Bachelor's Degree Difficulty w/ Childcare or Family Care: No Living arrangements: with family Occupation/Education: retired Gender identity (if verbalized by the patient): Female Sexual Orientation (if Verbalized by the Patient): Straight or Heterosexual Spiritual care concerns: No Agree to blood products: Yes Exam Narrative: GENERAL: Well-appearing, well-nourished, and in no acute distress. HEAD: Normocephalic, atraumatic. EYES: EOMI. CHEST: No respiratory distress. HEART: Regular rate EXTREMITIES: Normal range of motion. Very mild swelling with mild overlying redness to the left lower leg. Normal DP pulse. Normal sensation SKIN: Warm, dry, no rash. NEURO: No focal deficits. Alert and oriented x3. PSYCH: Normal mood and affect Course Vital Signs Vital signs: Vital Signs Temperature 98.1 F 01/03/25 09:57 Pulse Rate 74 01/03/25 09:57 Respiratory Rate 16 01/03/25 09:57 Blood Pressure 193/70 H 01/03/25 09:57 Pulse Oximetry 99 01/03/25 09:57 Temperature 98.1 F 01/03/25 09:57 Pulse Rate 74 01/03/25 09:57 Respiratory Rate 16 01/03/25 09:57 Blood Pressure 193/70 H 01/03/25 09:57 Pulse Oximetry 99 01/03/25 09:57 MDM - Extremity (Nontraumatic) MDM Narrative Medical decision making narrative: Patient presents the emergency department for swelling to the left lower leg. Concern for a DVT. She is afebrile and nontoxic appearing. She is neurovascularly intact. Ultrasound venous Doppler without evidence of DVT. Patient with very mild cellulitis of the lower extremity. Will be started on oral antibiotic based on her allergies. Instructed on close follow-up with PCP. She was given warnings to return to the ER Differential Diagnosis Differential diagnosis: Likely cellulitis and deep vein thrombosis of lower extremity Imaging Data Radiologist's impression: ITS Impressions Venous Doppler Study 01/03/25 10:34 Impression: No evidence of deep venous thrombosis Critical Care Time Critical Care Time Critical Care Time: No Discharge Plan Discharge Clinical Impression: Cellulitis Qualifiers: Site of cellulitis: extremity Site of cellulitis of extremity: lower extremity Laterality: left Qualified Code(s): L03.116 - Cellulitis of left lower limb Patient Disposition: Home Condition: Stable Instructions: Antibiotic Form, Cellulitis (ED) Additional Instructions: Return to the emergency department if you experience fever, increasing redness and swelling of your leg, or any other symptoms that are concerning to you. Take oral antibiotic as prescribed Follow-up with your primary care doctor Patient Language: French Prescriptions: New dicloxacillin 250 mg capsule 250 mg PO Q6H 7 Days Qty: 28 0RF No Action magnesium 500 mg Tablet 500 mg PO BID Ocuvite Adult 50 Plus 250 mg (90 mg-160 mg) capsule 1 cap PO DAILY sertraline 25 mg tablet 12.5 mg PO DAILY Qty: 90 0RF ferrous sulfate 325 mg (65 mg iron) Tablet,Delayed Release (Dr/Ec) 325 mg PO BID Qty: 60 0RF furosemide 20 mg tablet 20 mg PO QAM Qty: 90 1RF amlodipine 10 mg tablet 10 mg PO DAILY Qty: 90 2RF spironolactone 25 mg tablet 25 mg PO DAILY Qty: 90 2RF omeprazole 40 mg capsule,delayed release(DR/EC) 40 mg PO DAILY Qty: 90 3RF levothyroxine 75 mcg tablet 75 mcg PO DAILY Qty: 90 2RF Follow-up/Referrals: Katya Escalante MD [Primary Care Provider, Family Practice]
[2025-01-03 11:35] VITALS: BP 175/86; PULSE 81; RESP 18; O2SAT 98
== END 2025-01-03 11:36 | disposition home or self-care (01) ==
PROVIDERS: Emergency Provider Physician Assistant; PCP Family Medicine
DX: L03.116 Cellulitis of left lower limb (principal); I87.2 Venous insufficiency (chronic) (peripheral); I10 Essential (primary) hypertension; E03.9 Hypothyroidism, unspecified; E55.9 Vitamin D deficiency, unspecified; Z96.653 Presence of artificial knee joint, bilateral; Z86.2 Personal history of diseases of the blood and blood-forming organs and certain disorders involving the immune mechanism; Z90.49 Acquired absence of other specified parts of digestive tract; Z79.899 Other long term (current) drug therapy
CPT/HCPCS: 93971; 99284